=== PATIENT | male | born 1960 | race African-American/Black ===

== ENCOUNTER → 2017-12-09 | Outpatient (CLI) | payer OTHER, MEDICAID ==
[~2017-12-09] MED LIST: METF500T PO
[2017-12-09 11:01] LABS: BILIRUBIN, URINE NEG (NEG); BLOOD, URINE NEG (NEG); GLUCOSE,URINE TRACE mg/dL (NEG); KETONE, URINE NEG (NEG); MUCUS URINE FEW /lpf (OCC); NITRITE,URINE NEG (NEG); SQUAMOUS EPITHELIAL CELL URINE <1 /hpf (0-5); URINE COLOR YELLOW (YELLW/STRAW); URINE LEUKOCYTE ESTERASE NEG (NEG)
[2017-12-09 11:12] LABS: AUTOMATED NEUTROPHIL # 3.3 TH/MM3 (1.8-7.7); BASOPHIL % 0.7 % (0.0-2.0); EOSINOPHIL # 0.2 TH/MM3 (0-0.4); EOSINOPHIL % 2.9 % (0.0-4.0); HEMATOCRIT 39.2 % (39.0-51.0); HEMOGLOBIN 13.4 GM/DL (13.0-17.0); LYMPH % 37.1 % (9.0-44.0); LYMPHOCYTE # 2.3 TH/MM3 (1.0-4.8); MEAN CORPUSCULAR HEMOGLOBIN 27.3 PG (27.0-34.0); MEAN CORPUSCULAR HGB CONC 34.1 % (32.0-36.0); MEAN PLATELET VOLUME 8.9 FL (7.0-11.0); MONO % 6.6 % (0.0-8.0); MONOCYTE # 0.4 TH/MM3 (0-0.9); NEUT % 52.7 % (16.0-70.0); PLATELET COUNT 185 TH/MM3 (150-450); RED CELL DISTRIBUTION WIDTH 13.5 % (11.6-17.2); WHITE BLOOD COUNT 6.2 TH/MM3 (4.0-11.0)
[2017-12-09 11:19] LABS: PROTHROMBIN TIME - PATIENT 10.3 SEC (9.8-11.6)
--- NOTE | 2017-12-09 11:27 | RADRPT ---
EXAM DATE/TIME: 12/09/2017 10:39 [facility] COMPARISON: No previous studies available for comparison. INDICATIONS : Evaluate for pneumonia, pneumothorax, or communicable disesase. Pre-op colectomy. MEDICAL HISTORY : Diabetes mellitus type II. Carcinoma, colon. SURGICAL HISTORY : Infusaport. ENCOUNTER: Initial ACUITY: 1 day PAIN SCORE: 0/10 LOCATION: Bilateral chest FINDINGS: The Vjeeud-c-Ggib in excellent position. The lungs are clear. The visualized bony structures are thanh sly intact. CONCLUSION: 1. No acute cardiopulmonary findings. Steven Young MD on December 09, 2017 at 11:25 Board Certified Radiologist. This report was verified electronically.
[2017-12-09 11:40] LABS: ALBUMIN 3.6 GM/DL (3.4-5.0); AST (GOT) 16 U/L (15-37); BICARBONATE 28.3 MEQ/L (21.0-32.0); BLOOD UREA NITROGEN 6 MG/DL (7-18); CALCIUM 9.2 MG/DL (8.5-10.1); CHLORIDE 104 MEQ/L (98-107); CREATININE 0.58 MG/DL (0.60-1.30); GLOMERULAR FILTRATION RATE 175 ML/MIN (>89); GLUCOSE,FASTING 163 MG/DL (74-99); SODIUM (NA) 140 MEQ/L (136-145)
[2017-12-09 11:47] LABS: ALKALINE PHOSPHATASE 77 U/L (45-117); ALT (GPT) 22 U/L (12-78); TOTAL BILIRUBIN ADULT 0.7 MG/DL (0.2-1.0); TOTAL PROTEIN 7.3 GM/DL (6.4-8.2)
--- NOTE | 2017-12-09 13:50 | EKG ---
Date Performed: 12/09/2017 Time Performed: 10:13:10 PTAGE: 57 years EKG: Sinus rhythm LEFT ANTERIOR FASCICULAR BLOCK ABNORMAL ECG NO PREVIOUS TRACING 12/08/2017 1013 DOCTOR: Felipa Osorio Interpretating Date/Time 12/09/2017 13:49:55
== END ==
LOC: CPRE 09:45
PROVIDERS: ATTEND Colon & Rectal Surgery
DX: Z01.810 Encounter for preprocedural cardiovascular examination (principal); Z01.811 Encounter for preprocedural respiratory examination; Z01.812 Encounter for preprocedural laboratory examination; Z01.818 Encounter for other preprocedural examination; C20 Malignant neoplasm of rectum; C18.4 Malignant neoplasm of transverse colon; R94.31 Abnormal electrocardiogram [ECG] [EKG]
CPT/HCPCS: 36415; 71046; 80053; 81001; 82378; 85025; 85610; 85730; 93005

== ENCOUNTER 2017-12-16 11:31 | Inpatient (IN) | payer OTHER, MEDICAID ==
[~2017-12-16] VITALS: Ht 175.3 cm; Wt 83.8 kg
[2017-12-16] MEDS ORDERED: ePHEDrine/NS 25 MG/5 ML SYRINGE IV ONE (12:00)
[2017-12-16] MEDS ORDERED: ONDANSETRON HCL 4 MG/2 ML VIAL IV ONE (12:00)
[2017-12-16] MEDS ORDERED: LABETALOL HCL 100 MG/20 ML VIAL IV ONE (12:00)
[2017-12-16] MEDS ORDERED: STERILE WATER FOR INJECTION 20 ML VIAL IV ONE (12:00)
[2017-12-16] MEDS ORDERED: LACTATED RINGER'S 1000 ML INJ 1,000 ML IV ONE (12:00)
[2017-12-16] MEDS ORDERED: PHENYLEPHRINE HCL 10 MG/ML VIAL IV ONE (12:00)
[2017-12-16] MEDS ORDERED: VECURONIUM BROMIDE 20 MG VIAL IV ONE (12:00)
[2017-12-16] MEDS ORDERED: SODIUM CHLORID 0.9% 500 ML INJ 500 ML IV ONE (12:00)
[2017-12-16] MEDS ORDERED: LIDOCAINE HCL 1% PF 5 ML SYRINGE OTHER ONE (12:00)
[2017-12-16] MEDS ORDERED: PROPOFOL 200 MG/20 ML AMP IV ONE (12:00)
[2017-12-16] MEDS ORDERED: DEXAMETHASONE SOD PHOS 4 MG/ML VIAL IV ONE (12:00)
[2017-12-16] MEDS ORDERED: ceFAZolin INJ 1,000 MG VIAL IV ONE (12:00)
[2017-12-16] MEDS ORDERED: PHENYLEPH/NS 1000 MCG/10 ML SYR IV ONE (12:00)
[2017-12-16] MEDS ORDERED: ROCURONIUM INJ 50 MG/5 ML SYRINGE IV PUSH ONE (12:00)
[2017-12-16] MEDS ORDERED: DEXT 5%-NACL 0.9% 1000 ML INJ 1,000 ML IV SCH (14:00)
[2017-12-16] MEDS ORDERED: METOPROLOL TARTRATE 25 MG TAB PO PRN (14:00)
[2017-12-16] MEDS ORDERED: CHLORHEXIDINE GLUCONATE 2 % 1 PACK (2 CLOTHS) TOPICAL PRN (14:00)
[2017-12-16] MEDS ORDERED: INSULIN HUMAN REGULAR 1,000 UNITS/10 ML VIAL SQ PRN (14:00)
[2017-12-16] MEDS ORDERED: SODIUM CHLORID 0.9% 500 ML IV PRN (14:00)
[2017-12-16] MEDS ORDERED: POVIDONE IODINE 5% (ANTISEPSIS KIT) 4 APPLICATIONS EACH NARE PRN (14:00)
[2017-12-16] MEDS ORDERED: LACTATED RINGER'S 1000 ML IV PRN (14:00)
[2017-12-16] MEDS: METRONIDAZOLE 500 MG/100 ML ISONTONIC SOLN IV SCH ×2 (14:33→18:59)
[2017-12-16] MEDS: ceFAZolin 2 GM PREMIX 50 ML IV SCH ×2 (14:33→18:58)
--- NOTE | 2017-12-16 14:38 | PD.OP ---
Operative Report Date of Surgery: Dec 16, 2017 Preoperative Diagnosis: Colon and rectal cancer Postoperative Diagnosis: Same Procedure: Cystoscopy with bilateral ureteral catheter insertion Anesthesia: JOSE Surgeon: Srinivasa Sandoval Skate Hop(s): None Resident Surgeon: None Operation and Findings: 57-year-old male who presents with history of colon and rectal cancer who elected to undergo robotic resection by Dr. Nelson. Request for made for bilateral ureteral catheter insertion. Patient was brought to the operating replacement dorsal lithotomy position. He received general endotracheal tube anesthesia. He received preprocedure antibiotics he was prepped and draped in usual sterile fashion. A 22 Mosotho cystoscopy was inserted in the bladder. Coapting prostatic lobes were identified. The left ureteral orifice was identified and a 5 Mosotho catheter was inserted in the left ureteral orifice without difficulty. This was again repeated on the right side without difficulty. A 16 Mosotho Brantley was then inserted and the catheters were attached to the Brantley. He tolerated procedure well. Srinivasa Sandoval DO Dec 16, 2017 14:38
[2017-12-16] MEDS ORDERED: MIDAZOLAM HCL 2 MG/2 ML VIAL ONE (18:44)
[2017-12-16] MEDS ORDERED: SUGAMMADEX SODIUM 200 MG/2 ML VIAL IV PUSH ONE (22:09)
[2017-12-16] MEDS ORDERED: ACETAMINOPHEN 1000 MG/100 ML 100 ML IV ONE (22:09)
[2017-12-16] MEDS ORDERED: VECURONIUM BROMIDE 20 MG VIAL ONE (22:09)
[2017-12-16] MEDS ORDERED: ceFAZolin INJ 1,000 MG VIAL ONE (22:10)
[2017-12-16] MEDS: D5-NS + KCL 20 MEQ INJ 1,000 ML IV SCH (23:09)
[2017-12-16] MEDS ORDERED: Post-op Orders (for Pharmacy) XX ONE (23:15)
[2017-12-16] MEDS ORDERED: ACETAMINOPHEN/HYDROcodone 325 MG/5 MG TAB PO PRN (23:15)
[2017-12-16] MEDS: KETOROLAC TROMETHAMINE 30 MG/ML (IVP) VIAL IVP SCH (23:15)
[2017-12-16] MEDS ORDERED: diphenhydrAMINE HCL 50 MG/ML VIAL IV PUSH PRN (23:15)
[2017-12-16] MEDS ORDERED: ENALAPRILAT 2.5 MG/2 ML VIAL IV PUSH PRN (23:15)
[2017-12-16] MEDS ORDERED: POTASSIUM CHLOR 20 MEQ PREMIX 100 ML IV PRN (23:15)
[2017-12-16] MEDS ORDERED: BENZOCAINE 6 MG/MENTHOL 10 MG LOZENGE BUCCAL PRN (23:15)
[2017-12-16] MEDS ORDERED: ACETAMINOPHEN 325 MG TAB PO PRN (23:15)
[2017-12-16] MEDS ORDERED: ENALAPRILAT 1.25 MG/ML VIAL IV PUSH PRN (23:15)
[2017-12-16] MEDS ORDERED: NALOXONE HCL 0.4 MG/ML AMP IV PUSH PRN (23:15)
[2017-12-16] MEDS ORDERED: POTASSIUM CHLOR 40 MEQ PREMIX 100 ML IV PRN (23:15)
[2017-12-16] MEDS: PCA - TOTAL MG MORPHINE DELIVERED PER SHIFT SCH (23:15)
[2017-12-16] MEDS ORDERED: ONDANSETRON HCL 4 MG/2 ML VIAL IV PUSH PRN (23:15)
[2017-12-16] MEDS ORDERED: DO NOT ADM ANY ANTICOAGULANT DRUGS PRN (23:15)
[2017-12-16] MEDS ORDERED: MORPHINE SULFATE 4 MG/ML INJ ONE (23:35)
[2017-12-16] MEDS ORDERED: INSULIN HUMAN REGULAR 1,000 UNITS/10 ML VIAL SQ SCH (23:46)
[2017-12-16 23:51] LABS: AUTOMATED NEUTROPHIL # 12.9 TH/MM3 (1.8-7.7); BASOPHIL # 0.1 TH/MM3 (0-0.2); BASOPHIL % 0.5 % (0.0-2.0); HEMATOCRIT 39.7 % (39.0-51.0); HEMOGLOBIN 13.2 GM/DL (13.0-17.0); LYMPH % 7.1 % (9.0-44.0); LYMPHOCYTE # 1.1 TH/MM3 (1.0-4.8); MEAN CELL VOLUME 80.7 FL (80.0-100.0); MEAN CORPUSCULAR HEMOGLOBIN 26.8 PG (27.0-34.0); MEAN CORPUSCULAR HGB CONC 33.2 % (32.0-36.0); MEAN PLATELET VOLUME 8.3 FL (7.0-11.0); MONO % 7.3 % (0.0-8.0); MONOCYTE # 1.1 TH/MM3 (0-0.9); NEUT % 85.1 % (16.0-70.0); PLATELET COUNT 209 TH/MM3 (150-450); RED BLOOD COUNT 4.92 MIL/MM3 (4.50-5.90); RED CELL DISTRIBUTION WIDTH 14.3 % (11.6-17.2); WHITE BLOOD COUNT 15.1 TH/MM3 (4.0-11.0)
[2017-12-17] VITALS (21 sets, daily range): BP systolic 134–163; BP diastolic 69–90; PULSE 70–108; RESP 16–21; TEMP 96.3–98.5; O2SAT 95–98
[2017-12-17] MEDS: MORPHINE SULFATE 30 MG/30 ML PCA IV SCH ×2 (00:11→21:38)
[2017-12-17 00:20] LABS: BICARBONATE 20.4 MEQ/L (21.0-32.0); CALCIUM 8.7 MG/DL (8.5-10.1); CREATININE 1.18 MG/DL (0.60-1.30)
[2017-12-17] MEDS ORDERED: *morphine SULFATE 4 MG/ML PERIprocedure ONLY ONE (01:32)
--- NOTE | 2017-12-17 02:41 | MP ---
cc: Nan Nelson MD, Thomas Bigman, Dr. DATE OF OPERATION: 12/16/2017 PREOPERATIVE DIAGNOSES: 1. Transverse colon cancer. 2. Rectal cancer. POSTOPERATIVE DIAGNOSES: 1. Transverse colon cancer. 2. Rectal cancer. PROCEDURES: 1. Robotic extended descending colectomy. 2. Robotic low anterior resection. 3. Robotic diverting ileostomy. 4. Robotic takedown of splenic flexure. SURGEON: Nan Nelson MD OIL AND GAS SPECIALIST: Rakesh. ANESTHESIA: General per ET tube. ESTIMATED BLOOD LOSS: 150 mL. OPERATIVE INDICATIONS: The patient is a 57-year-old male who was recently noted to have cancer in both the distal transverse colon as well as the distal rectum. OPERATIVE COURSE: The patient was brought to the operating room, placed in supine position. After induction of general anesthesia, the patient was placed in Shon stirrups and all bony prominences were carefully padded. Dr. Sandoval and performed cystoscopy and placement of bilateral ureteral catheters. Please see his operative note for details. The site was then chosen for the camera being located just underneath the umbilicus. A 10/12 trocar was placed at this location under direct vision using the laparoscope. CO2 inflation was undertaken and a brief abdominal survey was performed with nothing that would preclude the robotic approach. The remainder of the ports were planned as followed: A 10/12 port was placed just inside the right anterior superior iliac spine and a #5 port was placed just above the umbilical line midway between the right lower quadrant port and the camera port. Two 8 da Andrade long ports were placed, 1 in the left anterior axillary line in line with the umbilicus and 1 just above the umbilical line in the left midclavicular line. The patient was hydroplaned with head slightly up and the omentum was brought up and over the transverse colon. He had quite a bit of omentum and it was very wrapped around the distal transverse colon so it was difficult to be sure until we finished some dissection that we did indeed have the correct area but in light of both his CAT scan and his colonoscopy and in agreement, I felt that it was fairly safe. So we proceeded with dissection. At the mid point of the transverse colon, the omentum was grasped and pulled away from the transverse colon. Dissection was continued until we were able to enter the lesser sac, however, the lesser sac was somewhat obscured. So this was somewhat difficult. The proximal descending colon was retracted medially and the lateral peritoneal attachments were dissected free there. Eventually the combination of the lesser sac and working our way around, I was able eventually to free the splenic flexure, although it was quite adherent. I did take the distal 1/3rd of the omentum with the specimen. The omentum was divided using the vessel sealer. Eventually we did have mobility of the descending colon from middle colic vessel over to the splenic flexure and round the splenic flexure and down the proximal half of the descending colon. At this point as length was going to be somewhat of a concern, I elected to proceed with the pelvic portion of the procedure. The robot was redocked over the left hip and the sigmoid colon was retracted down to the left. A window was made in the peritoneum and dissection was continued posterior to the vessels until the left ureter was clearly identified and swept away from the specimen. Eventually we had mobility and dissection continued up the posterior peritoneum freeing the descending colon mesentery from the posterior peritoneum and kidney and meeting our previous dissection. Dissection then continued down posterior to the rectum down to the level of the pelvic floor as the tumor was quite distal. The dissection then continued laterally around the right and left side ____ ourselves, the end going anteriorly down to the level of the pelvic floor as well past the peritoneal reflection. Eventually we had full mobility of the sigmoid and rectum down level of pelvic floor and after digital confirmation of the distal tumor, the mesentery was divided using the harmonic scalpel. An attempt was made to staple across this using the robotic stapler, but we could not get a good angle to get down and so I elected to proceed with a contour stapler. At this point we had full mobility of the distal transverse colon, descending colon, sigmoid colon and rectum down to the pelvic floor and I elected to proceed with the open portion of the procedure. The robot was undocked. A 12-15 cm midline incision was made beginning just below the umbilicus and proceeding to jail between the umbilicus and the symphysis pubis. Using electrocautery dissection it was carried down to the fascia of the anterior abdominal wall which was split. Before that the suprahemorrhoidal vessels were dissected free using ____, doubly clamped proximally, singly clamped distally and divided and ligated. At this point the contour stapler was brought onto the field and with quite a bit of difficulty, was eventually able to be closed across the distal colon just below the level of the tumor. This was confirmed digitally. The stapler was then fired and removed. At this point the remainder of the bowel was brought out and initially I had thought I could do a wedge resection of the distal transverse colon tumor with maintaining the descending colon and proximal sigmoid, bringing it down to the distal rectum and so with that in mind, the area of the mesentery just to the left of the middle colic vessels was dissected free using electrocautery and a SPENCER stapler was placed across the transverse colon at this level. The vessels to the splenic flexure were the dissected free, serially divided and ligated with 0 Vicryl ties and a site was chosen for division of the descending colon mid way along its length. This was also divided using the SPENCER stapler. The antimesenteric ____ staple line were then removed. One limb of the gastrointestinal stapler was then placed on each limb of the bowel. This was closed along the antimesenteric border, fired and removed thus creating enteroenterotomy. The resulting enterotomy was closed transversely with the TX-60 stapling device. The anastomosis appeared pink and healthy circumferentially. However, after further evaluation of the area, the bowel actually appeared viable both at the anastomosis and distally, however, upon evaluating there was a very small vessel that would be feeding both anastomoses and the intervening segment of bowel and was not a very robust vessel and I just felt after consideration, that this would not be in the patient's best interest, so I did elect to proceed with an extended left colectomy. That vessel was then divided and ligated with 0 Vicryl ties and the ascending colon and hepatic flexure were then dissected free using electrocautery, freeing up the ascending colon and proximal transverse colon. Eventually this was then brought down but of course due to the length of the middle colic vessel, was not able to reach quite distal anastomosis. The middle colic vessel was then divided and ligated with 0 Vicryl ties and the viability of the bowel was assessed and it appeared pink and healthy and had good bleeding at the edges. With this it did come down nicely to the rectal stump. Pursestring stapler was placed across the bowel at this level and the distal bowel was amputated and sent for pathology. The anvil from the 29 EEA stapler was placed into the cut end of the bowel and the previously placed pursestring suture was then secured. This was then reduced back into the peritoneal cavity. The fascia at the incision was closed in running fashion using #1 PDS. The wound was copiously irrigated with warm normal saline and the skin was closed in running subcuticular fashion using 3-0 Vicryl. CO2 insufflation was then resumed. The 29 EEA stapler was then advanced through the anus and up to the rectal stump without difficulty. The spike was then advanced just posterior to the staple line. The anvil was mated to the spike being careful that the bowel was not twisted. The stapler was closed, held for 30 seconds, fired and removed, thus creating an enteroenterotomy. The enterotomy appeared pink and healthy circumferentially but we did not have good visualization due to its extremely distal nature. It did however, lie without tension and in a nice orientation. The site was then chosen for diverting ileostomy being located approximately 15 cm proximal to the ileocecal valve. Clips were applied 2 proximally and 1 distally to allow appropriate orientation. The 10/12 trocar site in the right lower quadrant was closed using the crossbow device and #1 PDS. This was placed but not secured until the CO2 inflation was removed. All dissection beds were examined with no sign of any significant bleeding. Some Surgicel powder was dusted into the pelvis however no air was deflated to the extent possible. The ileostomy site was chosen for the right #5 port site. A 1.5 cm lower brule of skin was excised sharply and the preperitoneal fat was removed down to the fascia. The fascia was incised 1.5 cm and gently dilated to allow the bowel to come out. The ileostomy was brought out and the distal end was stapled with the TX-60 stapling device and the stoma was matured in a typical Yeimi fashion. The fascial suture was then secured. The trocar sites were then copiously irrigated with warm normal saline and closed in interrupted subcuticular fashion using 3-0 Vicryl. The right ureteral stent was removed. All sponge, needle and instrument counts were correct and the patient was returned to the post anesthesia care unit in stable condition. Nan Nelson MD KW/rt , 11:25 PM , 02:39 AM
[2017-12-17] MEDS: KETOROLAC TROMETHAMINE 30 MG/ML (IVP) VIAL IVP SCH ×4 (05:35→17:11)
[2017-12-17] MEDS: PCA - TOTAL MG MORPHINE DELIVERED PER SHIFT SCH ×3 (05:51→20:51)
[2017-12-17 07:14] LABS: AUTOMATED NEUTROPHIL # 9.8 TH/MM3 (1.8-7.7); BASOPHIL % 0.1 % (0.0-2.0); HEMATOCRIT 39.7 % (39.0-51.0); HEMOGLOBIN 13.1 GM/DL (13.0-17.0); LYMPH % 7.7 % (9.0-44.0); LYMPHOCYTE # 0.9 TH/MM3 (1.0-4.8); MEAN CELL VOLUME 82.2 FL (80.0-100.0); MEAN CORPUSCULAR HGB CONC 32.8 % (32.0-36.0); MEAN PLATELET VOLUME 8.6 FL (7.0-11.0); MONO % 6.6 % (0.0-8.0); MONOCYTE # 0.8 TH/MM3 (0-0.9); NEUT % 85.6 % (16.0-70.0); PLATELET COUNT 189 TH/MM3 (150-450); RED BLOOD COUNT 4.83 MIL/MM3 (4.50-5.90); RED CELL DISTRIBUTION WIDTH 14.1 % (11.6-17.2); WHITE BLOOD COUNT 11.4 TH/MM3 (4.0-11.0)
[2017-12-17 07:39] LABS: CALCIUM 8.8 MG/DL (8.5-10.1); CREATININE 1.22 MG/DL (0.60-1.30)
[2017-12-17] MEDS: metroNIDAZOLE 500 MG INJ 100 ML IV SCH ×3 (09:44→16:51)
[2017-12-17] MEDS: D5-NS + KCL 20 MEQ INJ 1,000 ML IV SCH ×2 (09:44→14:22)
[2017-12-17] MEDS ORDERED: GLUCAGON 1 MG/ML VIAL OTHER PRN (09:45)
[2017-12-17] MEDS ORDERED: DEXTROSE 50% IN WATER 50 ML VIAL(D50) IV PUSH PRN (09:45)
[2017-12-17] MEDS: PANTOPRAZOLE SODIUM 40 MG VIAL IVP SCH (09:45)
[2017-12-17] MEDS: HIGH DOSE INSULIN NOVOLIN REGULAR SUPPLEMENTAL SCALE SQ SCH ×4 (10:04→20:47)
[2017-12-17] MEDS: HEPARIN SODIUM - SQ 10,000 UNITS/ML VIAL SQ SCH (20:49)
[2017-12-18] VITALS: BP 155/83; PULSE 89; RESP 21; TEMP 96.7; O2SAT 93
[2017-12-18] MEDS: D5-NS + KCL 20 MEQ INJ 1,000 ML IV SCH ×4 (01:27→19:46)
[2017-12-18 04:00] VITALS: BP 134/81; PULSE 91; RESP 21; TEMP 97.2; O2SAT 92
[2017-12-18] MEDS: PCA - TOTAL MG MORPHINE DELIVERED PER SHIFT SCH ×3 (06:15→19:53)
[2017-12-18] MEDS: KETOROLAC TROMETHAMINE 30 MG/ML (IVP) VIAL IVP SCH ×4 (06:15→23:24)
[2017-12-18 07:03] LABS: AUTOMATED NEUTROPHIL # 8.8 TH/MM3 (1.8-7.7); BASOPHIL # 0.1 TH/MM3 (0-0.2); BASOPHIL % 0.8 % (0.0-2.0); EOSINOPHIL # 0.1 TH/MM3 (0-0.4); EOSINOPHIL % 0.6 % (0.0-4.0); HEMATOCRIT 32.3 % (39.0-51.0); HEMOGLOBIN 10.9 GM/DL (13.0-17.0); LYMPH % 15.6 % (9.0-44.0); LYMPHOCYTE # 1.8 TH/MM3 (1.0-4.8); MEAN CELL VOLUME 80.5 FL (80.0-100.0); MEAN CORPUSCULAR HEMOGLOBIN 27.1 PG (27.0-34.0); MEAN CORPUSCULAR HGB CONC 33.6 % (32.0-36.0); MEAN PLATELET VOLUME 8.6 FL (7.0-11.0); MONO % 5.3 % (0.0-8.0); MONOCYTE # 0.6 TH/MM3 (0-0.9); NEUT % 77.7 % (16.0-70.0); PLATELET COUNT 151 TH/MM3 (150-450); RED BLOOD COUNT 4.01 MIL/MM3 (4.50-5.90); RED CELL DISTRIBUTION WIDTH 14.1 % (11.6-17.2); WHITE BLOOD COUNT 11.3 TH/MM3 (4.0-11.0)
[2017-12-18 08:00] VITALS: BP 157/83; PULSE 93; RESP 18; TEMP 95.9; O2SAT 93
[2017-12-18 08:05] LABS: BICARBONATE 28.6 MEQ/L (21.0-32.0); CALCIUM 8.2 MG/DL (8.5-10.1); CREATININE 0.64 MG/DL (0.60-1.30)
[2017-12-18] MEDS: HEPARIN SODIUM - SQ 10,000 UNITS/ML VIAL SQ SCH ×2 (09:35→19:48)
[2017-12-18] MEDS: HIGH DOSE INSULIN NOVOLIN REGULAR SUPPLEMENTAL SCALE SQ SCH ×4 (09:36→19:47)
[2017-12-18] MEDS: PANTOPRAZOLE SODIUM 40 MG VIAL IVP SCH (09:36)
[2017-12-18 12:00] VITALS: BP 151/86; PULSE 98; RESP 16; TEMP 97.9; O2SAT 98
[2017-12-18 16:00] VITALS: BP 138/71; PULSE 102; RESP 18; TEMP 97.6; O2SAT 96
[2017-12-18 20:00] VITALS: BP 164/94; PULSE 91; RESP 21; TEMP 98.6; O2SAT 97
[2017-12-18] MEDS: MORPHINE SULFATE 30 MG/30 ML PCA IV SCH (23:27)
[2017-12-19] VITALS (7 sets, daily range): BP systolic 132–166; BP diastolic 80–92; PULSE 74–92; RESP 16–20; TEMP 97.2–98.5; O2SAT 90–98
[2017-12-19 04:22] LABS: BASOPHIL # 0.1 TH/MM3 (0-0.2); BASOPHIL % 0.7 % (0.0-2.0); EOSINOPHIL # 0.3 TH/MM3 (0-0.4); EOSINOPHIL % 2.7 % (0.0-4.0); HEMOGLOBIN 10.1 GM/DL (13.0-17.0); LYMPH % 21.4 % (9.0-44.0); LYMPHOCYTE # 2.2 TH/MM3 (1.0-4.8); MEAN CELL VOLUME 79.8 FL (80.0-100.0); MEAN CORPUSCULAR HEMOGLOBIN 27.9 PG (27.0-34.0); MEAN CORPUSCULAR HGB CONC 34.9 % (32.0-36.0); MEAN PLATELET VOLUME 8.6 FL (7.0-11.0); MONO % 5.8 % (0.0-8.0); MONOCYTE # 0.6 TH/MM3 (0-0.9); NEUT % 69.4 % (16.0-70.0); PLATELET COUNT 153 TH/MM3 (150-450); RED BLOOD COUNT 3.63 MIL/MM3 (4.50-5.90); RED CELL DISTRIBUTION WIDTH 13.8 % (11.6-17.2); WHITE BLOOD COUNT 10.1 TH/MM3 (4.0-11.0)
[2017-12-19 04:49] LABS: BICARBONATE 28.8 MEQ/L (21.0-32.0); CALCIUM 8.1 MG/DL (8.5-10.1); CREATININE 0.55 MG/DL (0.60-1.30)
[2017-12-19] MEDS: KETOROLAC TROMETHAMINE 30 MG/ML (IVP) VIAL IVP SCH ×3 (05:42→17:08)
[2017-12-19] MEDS: PCA - TOTAL MG MORPHINE DELIVERED PER SHIFT SCH (05:43)
[2017-12-19] MEDS: HEPARIN SODIUM - SQ 10,000 UNITS/ML VIAL SQ SCH ×2 (08:41→20:40)
[2017-12-19] MEDS: HIGH DOSE INSULIN NOVOLIN REGULAR SUPPLEMENTAL SCALE SQ SCH ×4 (08:42→20:44)
[2017-12-19] MEDS: PANTOPRAZOLE SODIUM 40 MG VIAL IVP SCH (08:42)
[2017-12-19] MEDS: ACETAMINOPHEN/HYDROcodone 325 MG/5 MG TAB PO PRN ×2 (09:49→20:39)
[2017-12-19] MEDS: D5-NS + KCL 20 MEQ INJ 1,000 ML IV SCH (12:53)
--- NOTE | 2017-12-19 13:06 | PD.WCN.NOT ---
Wound Consult Description: Consult for NEW OSTOMY TEACHING of rlq ileostomy per Dr Nelson Communicated with: Patient Patient family member at bedside Recommendation: Empty pouch of effluent when 1/3-1/2 full. Change entire pouching system every 3-5 days and PRN for suspected or confirmed leaks. Measure stoma with each wafer change. Assess stoma color and output. When to contact physician for lack of output and/or color changes in stoma appearance. How to obtain supplies once discharged. Peristomal skin care using water and thoroughly drying prior to new wafer application. Diet and foods that help thicken stool, create more gas and odor Additional Information: Patient seen on [address] [place] [address] for ostomy assessment and teaching. Ostomy Type: Ileostomy Surgeon: Nan Nelson MD Date of Surgery: Dec 16, 2017 Complete: Starter kit (sent out), Education materials (let at bedside and contents reviewed), Rx (left on chart), Other (pouch changed after being soiled when significant other tried to empty and clean it out) Educated patient on: Empty pouch of effluent when 1/3-1/2 full. Change entire pouching system every 3-5 days and PRN for suspected or confirmed leaks. Measure stoma with each wafer change. Assess stoma color and output. When to contact physician for lack of output and/or color changes in stoma appearance. How to obtain supplies once discharged. Peristomal skin care using water and thoroughly drying prior to new wafer application. Diet and foods that help thicken stool, create more gas and odor Additional information Patient seen on [address] [place] [address] for ostomy assessment and teaching. Patient was lying comfortably in bed with pouch more than 1/2 full of effluent. Patient states that he has been watching the nurses empty his pouch and when explained that it was too full he stated that he could call them in to empty it. It was explained to the patient that who ever would be taking care of this at home should be emptying it now. There fore his significant other at bedside got up and grabbed gloves for the patient. To the patient surprise his significant other stated that sports book writer was here to help him and that he should be emptying it and she would help him. Patient removed the pouch and gave it to the significant other to empty and rinse out as requested. Unfortunately the pouch became soiled in the process and the pouch had to be thrown away after teaching was completed on how to properly empty the pouch. A new pouch was obtained and after cleansing inside of wafer with toilet paper, the patient placed the new pouch and closed the end. Stoma measured 1 1/4-1 1/2" and requires a pouching system in size 2 1/ 4". Stoma is red, moist, round, moderately protruding, functioning with effluent coming from lumen noted in center of stoma. Patient was educated on the above ^ topics with reinforcement. Patient to be seen again on 12/20 for further teaching, to answer any questions, and assessment of stoma. Michelle Moreau SOHAM Dec 19, 2017 13:06
--- NOTE | 2017-12-19 13:09 | HHI.FF ---
Face to Face Verification Diagnosis: (1) Rectal cancer (2) Cancer of transverse colon Home Health Nursing Order: Wound care and dressing changes I have seen patient Rian Curran on 12/19/17. My clinical findings support the need for the requested home health care services because: Deconditioned w/ increased weakness Limited ability to care for self I certify that my clinical findings support that this patient is homebound because: Post-op weakness (new stoma) Nan Nelson MD Dec 19, 2017 13:09
--- NOTE | 2017-12-19 13:11 | HHI.PR ---
Subjective Remarks POD#3 robotic extended left colectomy, robotic LAR comfortable Objective Vital Signs Date Time Temp Pulse Resp B/P (MAP) Pulse Ox O2 Delivery O2 Flow Rate FiO2 12/19/17 12:00 97.6 86 16 158/92 (114) 98 12/19/17 08:40 18 12/19/17 08:00 97.7 77 16 158/82 (107) 95 12/19/17 05:43 17 12/19/17 04:00 97.2 81 20 148/90 (109) 95 12/19/17 00:00 98.2 92 20 148/81 (103) 98 12/18/17 23:27 19 12/18/17 20:00 98.6 91 21 164/94 (117) 97 12/18/17 19:53 19 12/18/17 16:00 97.6 102 18 138/71 (93) 96 12/18/17 14:00 16 I/O 12/18/17 12/18/17 12/18/17 12/19/17 12/19/17 12/19/17 07:00 15:00 23:00 07:00 15:00 23:00 Intake Total 750 ml 1000 ml 2933 ml 480 ml Output Total 350 ml 2000 ml 1050 ml 1150 ml Balance 400 ml 1000 ml 933 ml -570 ml -1150 ml Intake Oral 750 ml 2100 ml 480 ml IV Total 1000 ml 833 ml Output Urine Total 350 ml 1800 ml 1050 ml 900 ml Stool Total 200 ml 250 ml # Voids 0 Result Diagram: 12/19/17 0400 12/19/17 0400 Objective Remarks Abdomen soft, nondistended, tender wounds clean stoma pink Assessment and Plan Assessment and Plan Home tomorrow with [facility] Nan Nelson MD Dec 19, 2017 13:11
[2017-12-20] VITALS: BP 169/90; PULSE 74; RESP 17; TEMP 95.3; O2SAT 98
[2017-12-20] MEDS: ACETAMINOPHEN/HYDROcodone 325 MG/5 MG TAB PO PRN ×2 (04:37→11:36)
[2017-12-20 08:00] VITALS: BP 164/96; PULSE 68; RESP 20; TEMP 96.9; O2SAT 99
[2017-12-20] MEDS: HIGH DOSE INSULIN NOVOLIN REGULAR SUPPLEMENTAL SCALE SQ SCH (09:20)
[2017-12-20] MEDS: PANTOPRAZOLE SODIUM 40 MG VIAL IVP SCH (09:20)
[2017-12-20] MEDS: HEPARIN SODIUM - SQ 10,000 UNITS/ML VIAL SQ SCH (09:21)
--- NOTE | 2017-12-20 09:43 | HHI.PR ---
Subjective Remarks POD#4 robotic extended left colectomy, robotic LAR comfortable Objective Vital Signs Date Time Temp Pulse Resp B/P (MAP) Pulse Ox O2 Delivery O2 Flow Rate FiO2 12/20/17 08:00 96.9 68 20 164/96 (118) 99 12/20/17 00:00 95.3 74 17 169/90 (116) 98 12/19/17 20:00 98.1 74 17 166/85 (112) 98 12/19/17 16:00 97.4 82 16 139/80 (99) 97 12/19/17 12:00 97.6 86 16 158/92 (114) 98 I/O 12/19/17 12/19/17 12/19/17 12/20/17 12/20/17 12/20/17 07:00 15:00 23:00 07:00 15:00 23:00 Intake Total 480 ml 720 ml 240 ml Output Total 1050 ml 1150 ml 1500 ml Balance -570 ml -1150 ml 720 ml -1260 ml Intake Oral 480 ml 720 ml 240 ml Output Urine Total 1050 ml 900 ml 1500 ml Stool Total 250 ml # Voids 0 4 # Bowel Movements 1 Result Diagram: 12/19/17 0400 12/19/17 0400 Objective Remarks Abdomen soft, nondistended, tender wounds clean stoma pink Assessment and Plan Assessment and Plan Doing well Home today Followup 3 weeks Nan Nelson MD Dec 20, 2017 09:43
[2017-12-20] MEDS ORDERED: HYDR-3516 PO (09:46)
--- NOTE | 2017-12-21 08:01 | MD ---
cc: Nan Nelson MD DATE OF DISCHARGE: 12/20/2017 ADMISSION DIAGNOSIS: Transverse colon, concern to rectal cancer. DISCHARGE DIAGNOSIS: Transverse colon, concern to rectal cancer. PROCEDURES: 1. Cystoscopy, was placed on bilateral ureteral catheters. 2. Robotic extended descending colectomy. 3. Robotic low anterior resection. 4. Robotic diverting ileostomy. 5. Robotic takedown of the splenic flexure. HOSPITAL COURSE: The patient is a pleasant 57-year-old male who was recently noted to have cancer of both the distal transverse colon and the distal rectum. He was admitted to the hospital on 12/16/2017, after an outpatient bowel prep. He was taken to the operating room, where he underwent the above named procedures. Postoperatively, the patient did well, with rapid return of bowel and bladder function. DISPOSITION AND RECOMMENDATIONS: He was discharged to home on the 12/20/2017, with instructions to follow with myself in the office in 3 weeks. Final pathology is not available at the time of discharge. MD JAKOB Bruce/RAJEEV , 09:45 AM , 09:20 PM
== END 2017-12-20 11:37 | disposition home or self-care (01) | DRG 330 ==
LOC: HSDI 11:31 → EDUNIT# 13:30 → HCIS 12-17 01:52 → N07A 12-17 15:47
PROVIDERS: ADMIT Colon & Rectal Surgery; ATTEND Colon & Rectal Surgery
PROC: 0DNU4ZZ Release Omentum, Percutaneous Endoscopic Approach (ICD-10-PCS; 2017-12-16)
PROC: 0DBL0ZZ Excision of Transverse Colon, Open Approach (ICD-10-PCS; 2017-12-16)
PROC: 0DBP0ZZ Excision of Rectum, Open Approach (ICD-10-PCS; 2017-12-16)
PROC: 0DBN0ZZ Excision of Sigmoid Colon, Open Approach (ICD-10-PCS; 2017-12-16)
PROC: 0DBP0ZZ Excision of Rectum, Open Approach (ICD-10-PCS; 2017-12-16)
PROC: 07BC0ZX Excision of Pelvis Lymphatic, Open Approach, Diagnostic (ICD-10-PCS; 2017-12-16)
PROC: 0D1B0Z4 Bypass Ileum to Cutaneous, Open Approach (ICD-10-PCS; 2017-12-16)
PROC: 0DBU0ZZ Excision of Omentum, Open Approach (ICD-10-PCS; 2017-12-16)
PROC: 8E0W4CZ Robotic Assisted Procedure of Trunk Region, Percutaneous Endoscopic Approach (ICD-10-PCS; 2017-12-16)
PROC: 0T788DZ Dilation of Bilateral Ureters with Intraluminal Device, Via Natural or Artificial Opening Endoscopic (ICD-10-PCS; 2017-12-16)
PROC: 0DBG0ZZ Excision of Left Large Intestine, Open Approach (ICD-10-PCS; principal; 2017-12-16 13:39)
PROC: 0DNG4ZZ Release Left Large Intestine, Percutaneous Endoscopic Approach (ICD-10-PCS; 2017-12-16 13:39)
DX: C18.4 Malignant neoplasm of transverse colon (principal); C19 Malignant neoplasm of rectosigmoid junction
CPT/HCPCS: 80048; 82805; 82948; 85025; 86850; 86900; 86901; 88305; 88307; 88309; 94150; C9113; J0131; J0690; J1100; J1644; J1815; J1885; J2250; J2270; J2370; J2405; J3010; J3480; J7040; J7120

== ENCOUNTER 2017-12-20 23:05 | Emergency (ER) | payer OTHER, MEDICAID ==
[~2017-12-20 23:05] MED LIST changes: +HYDR-3516 PO
[2017-12-20 23:19] VITALS: BP 128/78; PULSE 85; RESP 14; TEMP 98.8; O2SAT 99
[2017-12-20] MEDS ORDERED: SODIUM CHLOR 0.9% 1000 ML INJ 1,000 ML IV ONE (23:30)
[2017-12-20 23:38] VITALS: RESP 19; O2SAT 99
[2017-12-20 23:49] LABS: AUTOMATED NEUTROPHIL # 8.3 TH/MM3 (1.8-7.7); BASOPHIL % 0.4 % (0.0-2.0); EOSINOPHIL # 0.2 TH/MM3 (0-0.4); EOSINOPHIL % 1.9 % (0.0-4.0); HEMATOCRIT 41.8 % (39.0-51.0); HEMOGLOBIN 14.2 GM/DL (13.0-17.0); LYMPH % 15.7 % (9.0-44.0); LYMPHOCYTE # 1.7 TH/MM3 (1.0-4.8); MEAN CELL VOLUME 79.9 FL (80.0-100.0); MEAN CORPUSCULAR HEMOGLOBIN 27.2 PG (27.0-34.0); MEAN PLATELET VOLUME 8.8 FL (7.0-11.0); MONO % 6.4 % (0.0-8.0); MONOCYTE # 0.7 TH/MM3 (0-0.9); NEUT % 75.6 % (16.0-70.0); PLATELET COUNT 259 TH/MM3 (150-450); RED BLOOD COUNT 5.23 MIL/MM3 (4.50-5.90); RED CELL DISTRIBUTION WIDTH 14.1 % (11.6-17.2)
--- NOTE | 2017-12-20 23:52 | RADRPT ---
EXAM DATE/TIME: 12/20/2017 23:39 [facility] COMPARISON: CHEST PA & LAT, December 09, 2017, 10:39. INDICATIONS : Short of breath. MEDICAL HISTORY : Diabetes mellitus type II. Carcinoma, colon. SURGICAL HISTORY : Infusaport. ENCOUNTER: Initial ACUITY: 1 day PAIN SCORE: 0/10 LOCATION: Bilateral chest FINDINGS: Underinflated portable AP view of the chest demonstrates a normal-sized cardiac silhouette. Right adeola st wall [id number] remains present. There are linear opacities at both lung bases. No pleural effu marie, airspace consolidation, or pneumothorax is identified. The bones and soft tissues demonstrate n o acute finding. CONCLUSION: Underinflation with atelectasis at the lung bases. Otherwise, no acute finding is identified. [place] Munroe MD on December 20, 2017 at 23:50 Board Certified Radiologist. This report was verified electronically.
[2017-12-21 00:09] LABS: BICARBONATE 23.9 MEQ/L (21.0-32.0); BLOOD UREA NITROGEN 8 MG/DL (7-18); CALCIUM 9.2 MG/DL (8.5-10.1); CHLORIDE 102 MEQ/L (98-107); CREATININE 0.67 MG/DL (0.60-1.30); GLOMERULAR FILTRATION RATE 148 ML/MIN (>89); GLUCOSE,RANDOM 212 MG/DL (74-106); MAGNESIUM 1.8 MG/DL (1.5-2.5); SODIUM (NA) 136 MEQ/L (136-145)
[2017-12-21 00:22] LABS: TROPONIN I LESS THAN 0.02 NG/ML (0.02-0.05)
--- NOTE | 2017-12-21 00:27 | PD ---
HPI Chief Complaint: Syncope/Near-Syncope Time Seen by Provider: 23:14 Travel History International Travel<30 days: No Contact w/Intl Traveler<30days: No Traveled to known affect area: No History of Present Illness HPI The patient is a 57 year old male who presents to the [facility] emergency department with a history of reportedly being discharged from the hospital earlier today around 11 AM status post partial colectomy for colon cancer and right lower quadrant ileostomy placement. The patient had the surgery done by Dr. Nelson. The patient reports that the surgery was done on December 16. The patient is postop day #4. The patient reports that when he was discharged he was started on a new pain medication, oxycodone. The patient reports that in the hospital he was receiving hydrocodone for pain. The patient reports that he took an oxycodone at approximately 5 PM and then another one at approximately 9:30 PM. Shortly after taking the second dose he began to feel sweaty and agitated. He reports that he stood up and at which point he got lightheaded and had syncope. The syncopal episode lasted for a few seconds. He denies injuring himself as he was eased down by his . He denies having any chest pain, chest pressure, or shortness of breath. He denies eating anything prior to taking his last pain pill. He reports that he has been drinking fluids, however he has not been eating well today. He has had good output from his ostomy. He reports having abdominal pain related to the surgery that is no worse it was at baseline earlier today. He reports having nausea but no vomiting. He denies having any fevers or chills, cough or congestion. On review of systems otherwise, the patient denies having any neck pain, urinary symptoms, or other neurologic symptoms. FORMERLY [facility] Past Medical History Narrative Medical The patient's past medical history is significant for diabetes mellitus, colon cancer Heart Rhythm Problems: No Cancer: Yes (COLON) Cardiovascular Problems: No High Cholesterol: No Chest Pain: No Congestive Heart Failure: No Diabetes: Yes (TYPE 2) Patient Takes Glucophage: Yes Endocrine: Yes Gastrointestinal Disorders: Yes (COLON CA) GERD: Yes Genitourinary: No Hepatitis: No Hiatal Hernia: No Immune Disorder: No Musculoskeletal: No Neurologic: No Psychiatric: No Reproductive: No Respiratory: No Thyroid Disease: No Tetanus Vaccination: Unknown Influenza Vaccination: No Past Surgical History Narrative Surgical The patient's past surgical history is significant for a partial colectomy with ileostomy placement, [id number] placement Abdominal Surgery: Yes (LEFT INGUINAL HERNIA REPAIR) AICD: No Body Medical Devices: RIGHT CHEST PORT Cardiac Surgery: No Ear Surgery: No Endocrine Surgery: No Eye Surgery: No Genitourinary Surgery: Yes (COLECTOMY) Joint Replacement: No Oral Surgery: No Pacemaker: No Thoracic Surgery: No Other Surgery: Yes Social History Alcohol Use: No Tobacco Use: No Substance Use: No Allergies-Medications (Allergen,Severity, Reaction): Coded Allergies: No Known Allergies (Unverified , 12/16/17) Reported Meds & Prescriptions Reported Meds & Active Scripts Active Hydrocodone-Acetamin 5-325 mg (Hydrocodone/Acetaminophen) 5 Mg-325 Mg Tablet 1- 2 Tab PO Q6H PRN 14 Days Reported Metformin (Metformin HCl) 500 Mg Tab 500 Mg PO BIDPC Review of Systems Except as stated in HPI: all other systems reviewed are Neg General / Constitutional: No: Fever Eyes: No: Visual changes HENT: No: Headaches, Rhinorrhea, Congestion Cardiovascular: Positive: Diaphoresis, Syncope, No: Chest Pain or Discomfort Respiratory: No: Shortness of Breath Gastrointestinal: Positive: Abdominal Pain (Postop abdominal pain), No: Nausea , Vomiting Genitourinary: No: Dysuria Musculoskeletal: No: Pain Skin: No Rash Neurologic: Positive: Dizziness, Syncope, No: Weakness, Focal Abnormalities, Change in Mentation, Slurred Speech, Sensory Disturbance Psychiatric: No: Depression Endocrine: No: Polydipsia Hematologic/Lymphatic: No: Easy Bruising Physical Exam Narrative General: The patient is a well-developed well-nourished male in no acute distress. Head and Neck exam: Head is normocephalic atraumatic. Eyes: EOMI, pupils are equal round and reactive to light. Nose: Midline septum with pink mucous membranes Mouth: Dentition unremarkable. Moist mucus membranes. Posterior oropharynx is not erythematous. No tonsillar hypertrophy. Uvula midline. Airway patent. Neck: No palpable lymphadenopathy. No nuchal rigidity. No thyromegaly. Cardiovascular: Sinus tachycardia in the low 100 without murmurs, gallops, or rubs. No pulse deficit to the extremities on simultaneous auscultation and palpation of his radial artery. Lungs: Clear to auscultation bilaterally. No wheezes, rhonchi, or rales. Abdomen: Soft, with superficial discomfort on palpation around his postoperative incisions without any signs of edema, erythema, or purulent drainage. No guarding, rebound, or rigidity. Normal bowel sounds are audible. No tenderness on palpation of McBurney's point. The patient has an ileostomy noted with good output in the right lower quadrant of the abdomen. Extremities: No clubbing, cyanosis, or edema. 2+ pulses in all 4 extremities. No calf tenderness on palpation. Back: No costovertebral angle tenderness to palpation. Neurologic Exam: Grossly nonfocal Skin Exam: No rash noted. Intact skin that is warm and dry. Data Data Last Documented VS Vital Signs Date Time Temp Pulse Resp B/P (MAP) Pulse Ox O2 Delivery O2 Flow Rate FiO2 12/20/17 23:38 19 99 Room Air 12/20/17 23:21 2.00 12/20/17 23:19 98.8 85 128/78 (95) Orders Orders Electrocardiogram (12/20/17 23:30) Complete Blood Count With Diff (12/20/17 23:30) Basic Metabolic Panel (Bmp) (12/20/17 23:30) Creatine Kinase (Cpk) (12/20/17 23:30) Ckmb (Isoenzyme) Profile (12/20/17 23:30) Troponin I (12/20/17 23:30) Urinalysis - C+S If Indicated (12/20/17 23:30) Magnesium (Mg) (12/20/17 23:30) Chest, Single Ap (12/20/17 23:30) Iv Access Insert/Monitor (12/20/17 23:30) Ecg Monitoring (12/20/17 23:30) Oximetry (12/20/17 23:30) Sodium Chlor 0.9% 1000 Ml Inj (Ns 1000 M (12/20/17 23:30) CKMB (12/20/17 23:30) CKMB% (12/20/17 23:30) Sodium Chlorid 0.9% 500 Ml Inj (Ns 500 M (12/21/17 01:15) Urine Culture (12/21/17 01:05) Ed Discharge Order (12/21/17 01:54) Labs Laboratory Tests Test 12/20/17 23:30 12/21/17 01:05 White Blood Count 11.0 TH/MM3 Red Blood Count 5.23 MIL/MM3 Hemoglobin 14.2 GM/DL Hematocrit 41.8 % Mean Corpuscular Volume 79.9 FL Mean Corpuscular Hemoglobin 27.2 PG Mean Corpuscular Hemoglobin Concent 34.0 % Red Cell Distribution Width 14.1 % Platelet Count 259 TH/MM3 Mean Platelet Volume 8.8 FL Neutrophils (%) (Auto) 75.6 % Lymphocytes (%) (Auto) 15.7 % Monocytes (%) (Auto) 6.4 % Eosinophils (%) (Auto) 1.9 % Basophils (%) (Auto) 0.4 % Neutrophils # (Auto) 8.3 TH/MM3 Lymphocytes # (Auto) 1.7 TH/MM3 Monocytes # (Auto) 0.7 TH/MM3 Eosinophils # (Auto) 0.2 TH/MM3 Basophils # (Auto) 0.0 TH/MM3 CBC Comment DIFF FINAL Differential Comment Blood Urea Nitrogen 8 MG/DL Creatinine 0.67 MG/DL Random Glucose 212 MG/DL Calcium Level 9.2 MG/DL Magnesium Level 1.8 MG/DL Sodium Level 136 MEQ/L Potassium Level 3.7 MEQ/L Chloride Level 102 MEQ/L Carbon Dioxide Level 23.9 MEQ/L Anion Gap 10 MEQ/L Estimat Glomerular Filtration Rate 148 ML/MIN Total Creatine Kinase 240 U/L Creatine Kinase MB 1.5 NG/ML Troponin I LESS THAN 0.02 NG/ML Urine Color YELLOW Urine Turbidity HAZY Urine pH 5.0 Urine Specific [place] 1.014 Urine Protein 30 mg/dL Urine Glucose (UA) 70 mg/dL Urine Ketones 40 mg/dL Urine Occult Blood MOD Urine Nitrite NEG Urine Bilirubin NEG Urine Urobilinogen LESS THAN 2.0 MG/DL Urine Leukocyte Esterase TRACE Urine RBC /hpf Urine WBC 19 /hpf Urine Hyaline Casts 2 /lpf Urine White Blood Cell Casts 3 /lpf Urine Mucus FEW /lpf Microscopic Urinalysis Comment CULTURE INDICATED MDM Medical Decision Making Medical Screen Exam Complete: Yes Emergency Medical Condition: Yes Medical Record Reviewed: Yes Interpretation(s) Last Impressions Chest X-Ray 12/20/17 2330 Signed Impressions: Service Date/Time: Wednesday, December 20, 2017 23:39 - CONCLUSION: Underinflation with atelectasis at the lung bases. Otherwise, no acute finding is identified. [place] Mun[place] MD Differential Diagnosis Vasovagal syncope, versus medication side effect, versus orthostasis, versus dehydration, versus anemia Narrative Course During the course of the patient's emergency department visit, the patient's history, examination, and differential diagnosis were reviewed with the patient. The patient was placed on a cardiac cath lab manager with oximetry and frequent blood pressure monitoring. The patient had IV access obtained and blood work sent for analysis. The patient had an EKG done on arrival. The patient's EKG shows a sinus tachycardia rate of 107, QRS duration 90 ms, QTC [address] segment elevation is noted. A left anterior fascicular block is noted. The patient was initially provided normal saline a 1 L IV fluid bolus. The patient's laboratory studies were reviewed and remarkable for a white count of 11, hemoglobin 14.2, platelets 259 with neutrophils 75.6. Basic metabolic profile is remarkable for a glucose of 212, CPK 240, CK-MB 1.5, troponin I less than 0.02, urinalysis shows 30 protein, 70 glucose, 40 ketones, moderate occult blood, innumerable RBCs, 19 WBCs, no bacteria. Review of the record reveals that the patient had ureteral catheterization attached to a Brantley catheter by the urologist preoperatively. Radiology studies were reviewed and remarkable for a chest x-ray that shows underinflation with atelectasis at the bases, no other acute abnormality. Review the record reveals that the patient was on hydrocodone in the hospital and tolerated it well. He was discharged home on hydrocodone. I suspect that the patient is under hydrated with regarding his ileostomy output and also took pain medication on empty stomach which precipitated his syncope. A call has been placed out to Dr. Nelson to make her aware of his emergency department evaluation. I suspect that the patient will be able to be discharged home to follow-up as an outpatient. The patient is instructed regarding the importance of increasing his fluid intake specifically with water. I spoke to Dr. Diana regarding this patient's case who is covering for Dr. Nelson. He agreed with the above plan per he will communicate with Dr. Nelson regarding the urinalysis culture for follow-up. The patient is resting comfortably and feels better, is alert and in no distress. The patient's results and examination findings were discussed with the patient. The repeat examination is unremarkable and benign. The history, exam, diagnostic testing, and current condition do not suggest any significant pathology to warrant further testing, continued ED treatment, admission, or surgical evaluation at this point. The vital signs have been stable. The patient does not have uncontrollable pain, intractable vomiting, or other significant symptoms. The patient's condition is stable and appropriate for discharge. The patient will pursue further outpatient evaluation with a primary care physician or other designated or consulting physician as indicated in the discharge instructions. The patient expressed understanding and was agreeable with this plan. Physician Communication Physician Communication The patient's case including history, pertinent physical examination findings, and laboratory studies were discussed with Dr. Diana, the covering colorectal surgeon for Dr. Nelson. We discussed the patient's findings as far as his laboratory studies go, vital signs, exam, and urinalysis specifically. The patient has innumerable red blood cells. I did discuss with him this finding. He reports that the patient did have ureteral catheterization done bilaterally preop which was removed postoperatively. He felt that the findings on the urinalysis could be related to that procedure. He did not recommend antibiotic treatment at this time. A culture will be done which she will discuss with Dr. Nelson who will follow up regarding it. He agreed with the plan for the patient to be discharged home in continue to push fluids and take his pain medication in the future after eating something. Referrals: Nan Nelson MD 1 day Primary Care Physician 2 days Patient Instructions: Dehydration (ED), General Instructions, Syncope (ED) Med/Other Pt SpecificInfo: No Change to Meds Disposition: 01 DISCHARGE HOME Condition: Stable Flora Conklin MD Dec 21, 2017 00:26
[2017-12-21] MEDS ORDERED: SODIUM CHLORID 0.9% 500 ML INJ 500 ML IV ONE (01:15)
[2017-12-21 01:29] LABS: BILIRUBIN, URINE NEG (NEG); BLOOD, URINE MOD (NEG); GLUCOSE,URINE 70 mg/dL (NEG); HYALINE CAST, URINE 2 /lpf (RARE); KETONE, URINE 40 mg/dL (NEG); MUCUS URINE FEW /lpf (OCC); NITRITE,URINE NEG (NEG); URINE COLOR YELLOW (YELLW/STRAW); URINE LEUKOCYTE ESTERASE TRACE (NEG); WHITE BLOOD CELL CAST, URINE 3 /lpf
--- NOTE | 2017-12-21 10:55 | EKG ---
Date Performed: 12/20/2017 Time Performed: 23:16:45 PTAGE: 57 years EKG: SINUS TACHYCARDIA PATTERN CONSISTENT WITH PULMONARY DISEASE POOR R WAVE PROGRESSION LEFT AN TERIOR FASCICULAR BLOCK ABNORMAL ECG WARNING: DATA QUALITY MAY AFFECT INTERPRETATION NO PREVIOUS TRACING DOCTOR: William Jackson Interpretating Date/Time 12/21/2017 10:53:56
== END 2017-12-21 03:30 | disposition home or self-care (01) ==
LOC: NEPC 23:05
DX: C18.9 Malignant neoplasm of colon, unspecified (principal); E11.9 Type 2 diabetes mellitus without complications; R00.0 Tachycardia, unspecified; Z79.84 Long term (current) use of oral hypoglycemic drugs
CPT/HCPCS: 71045; 80048; 81001; 82550; 82552; 83735; 84484; 85025; 87077; 87086; 87186; 93005; 96360; 96361; 99285; J7030; J7040

== ENCOUNTER 2017-12-24 13:11 | Inpatient (IN) | payer MEDICAID, OTHER ==
[~2017-12-24] VITALS: Ht 175.3 cm; Wt 83.5 kg
[2017-12-24 13:36] VITALS: BP 127/85; PULSE 123; RESP 18; TEMP 97.2; O2SAT 97
[2017-12-24 13:47] VITALS: BP 146/96; PULSE 113; RESP 25; O2SAT 97
[2017-12-24] MEDS ORDERED: ZOFR4TAB PO (13:48)
[2017-12-24] MEDS ORDERED: SODIUM CHLOR 0.9% 1000 ML INJ 1,000 ML IV SCH (13:59)
[2017-12-24] MEDS ORDERED: ONDANSETRON HCL 4 MG/2 ML VIAL IVP ONE (14:00)
[2017-12-24] MEDS ORDERED: MORPHINE SULFATE 4 MG/ML INJ IV PUSH ONE ×2 (14:00→16:45)
[2017-12-24] MEDS ORDERED: SODIUM CHLORIDE 0.9% FLUSH 10 ML FLUSH IV FLUSH PRN ×2 (14:00→18:00)
--- NOTE | 2017-12-24 14:07 | PD ---
HPI Chief Complaint: Abdominal Pain Time Seen by Provider: 13:42 Travel History International Travel<30 days: No Contact w/Intl Traveler<30days: No Traveled to known affect area: No History of Present Illness HPI 57-year-old male presents to the emergency department for evaluation of abdominal pain and low back pain. Patient recently had colectomy for colon cancer and right lower quadrant ileostomy placed on December 16 was discharged on December 20. He was seen here later today on December 20 for a syncopal episode. He states his abdominal pain is worsening., Currently 10/10 throughout the entire abdomen, worse in the epigastric region that radiates to the lower back. He also reports associated shortness of breath. He states he has vomited, but not today. He denies any fevers, but admits to chills. He denies any chest pain. Patient has not yet started chemotherapy for colon cancer. His surgeon was Dr. Nan Nelson. He is taking hydrocodone for pain. He denies exacerbating or alleviating factors. Moderate severity. PFSH Past Medical History Heart Rhythm Problems: No Cancer: Yes (COLON) Cardiovascular Problems: No High Cholesterol: No Chest Pain: No Congestive Heart Failure: No Diabetes: Yes (TYPE 2) Patient Takes Glucophage: Yes Endocrine: Yes Gastrointestinal Disorders: Yes (COLON CA) GERD: Yes Genitourinary: No Hepatitis: No Hiatal Hernia: No Immune Disorder: No Musculoskeletal: No Neurologic: No Psychiatric: No Reproductive: No Respiratory: No Thyroid Disease: No Past Surgical History Abdominal Surgery: Yes (LEFT INGUINAL HERNIA REPAIR) AICD: No Body Medical Devices: RIGHT CHEST PORT Cardiac Surgery: No Ear Surgery: No Endocrine Surgery: No Eye Surgery: No Genitourinary Surgery: Yes (COLECTOMY) Joint Replacement: No Oral Surgery: No Pacemaker: No Thoracic Surgery: No Other Surgery: Yes Social History Alcohol Use: No Tobacco Use: No Substance Use: No Allergies-Medications (Allergen,Severity, Reaction): Coded Allergies: No Known Allergies (Unverified , 12/24/17) Reported Meds & Prescriptions Reported Meds & Active Scripts Active Hydrocodone-Acetamin 5-325 mg (Hydrocodone/Acetaminophen) 5 Mg-325 Mg Tablet 1- 2 Tab PO Q6H PRN 14 Days Reported Zofran (Ondansetron HCl) 4 Mg Tab 4 Mg PO Q8HR PRN Metformin (Metformin HCl) 500 Mg Tab 500 Mg PO BIDPC Review of Systems Except as stated in HPI: all other systems reviewed are Neg Physical Exam Narrative GENERAL: Well-nourished, well-developed male patient, afebrile. Patient is in moderate distress. SKIN: Focused skin assessment warm/dry. HEAD: Normocephalic. Atraumatic. EYES: No scleral icterus. No injection or drainage. NECK: Supple, trachea midline. No JVD or lymphadenopathy. CARDIOVASCULAR: Regular rate and rhythm without murmurs, gallops, or rubs. RESPIRATORY: Breath sounds equal bilaterally. No accessory muscle use. Lungs sounds are clear to auscultation. GASTROINTESTINAL: Abdomen has diffuse tenderness to palpation, worse in the epigastric region. Right lower quadrant ileostomy noted. No current stool in bag. MUSCULOSKELETAL: No cyanosis, or edema. BACK: Nontender without obvious deformity. No CVA tenderness. Data Data Last Documented VS Vital Signs Date Time Temp Pulse Resp B/P (MAP) Pulse Ox O2 Delivery O2 Flow Rate FiO2 12/24/17 16:59 109 23 159/87 (111) 100 Room Air 12/24/17 13:36 97.2 Orders Orders Complete Blood Count With Diff (12/24/17 13:59) Comprehensive Metabolic Panel (12/24/17 13:59) Lipase (12/24/17 13:59) Lactic Acid (12/24/17 13:59) Prothrombin Time / Inr (Pt) (12/24/17 13:59) Act Partial Throm Time (Ptt) (12/24/17 13:59) Urinalysis - C+S If Indicated (12/24/17 13:59) Ct Abd/Pel W Iv Contrast(Rout) (12/24/17 13:59) Iv Access Insert/Monitor (12/24/17 13:59) Ecg Monitoring (12/24/17 13:59) Oximetry (12/24/17 13:59) Morphine Inj (Morphine Inj) (12/24/17 14:00) Ondansetron Inj (Zofran Inj) (12/24/17 14:00) Sodium Chlor 0.9% 1000 Ml Inj (Ns 1000 M (12/24/17 13:59) Sodium Chloride 0.9% Flush (Ns Flush) (12/24/17 14:00) Electrocardiogram (12/24/17 13:59) Chest, Single Ap (12/24/17 13:59) Creatine Kinase (Cpk) (12/24/17 13:59) Troponin I (12/24/17 13:59) Iohexol 350 Inj (Omnipaque 350 Inj) (12/24/17 16:00) Morphine Inj (Morphine Inj) (12/24/17 16:45) Sodium Chlor 0.9% 1000 Ml Inj (Ns 1000 M (12/24/17 17:00) Admit Order (Ed Use Only) (12/24/17 17:12) Labs Laboratory Tests Test 12/24/17 14:15 12/24/17 16:52 White Blood Count 10.8 TH/MM3 Red Blood Count 5.82 MIL/MM3 Hemoglobin 15.5 GM/DL Hematocrit 46.3 % Mean Corpuscular Volume 79.5 FL Mean Corpuscular Hemoglobin 26.7 PG Mean Corpuscular Hemoglobin Concent 33.5 % Red Cell Distribution Width 14.2 % Platelet Count 359 TH/MM3 Mean Platelet Volume 8.6 FL Neutrophils (%) (Auto) 73.4 % Lymphocytes (%) (Auto) 12.8 % Monocytes (%) (Auto) 13.1 % Eosinophils (%) (Auto) 0.4 % Basophils (%) (Auto) 0.3 % Neutrophils # (Auto) 8.0 TH/MM3 Lymphocytes # (Auto) 1.4 TH/MM3 Monocytes # (Auto) 1.4 TH/MM3 Eosinophils # (Auto) 0.0 TH/MM3 Basophils # (Auto) 0.0 TH/MM3 CBC Comment DIFF FINAL Differential Comment Prothrombin Time 11.4 SEC Prothromb Time International Ratio 1.1 RATIO Activated Partial Thromboplast Time 22.9 SEC Blood Urea Nitrogen 10 MG/DL Creatinine 0.80 MG/DL Random Glucose 306 MG/DL Total Protein 7.0 GM/DL Albumin 3.4 GM/DL Calcium Level 9.3 MG/DL Alkaline Phosphatase 79 U/L Aspartate Amino Transf (AST/SGOT) 13 U/L Alanine Aminotransferase (ALT/SGPT) 25 U/L Total Bilirubin 0.6 MG/DL Sodium Level 130 MEQ/L Potassium Level 4.1 MEQ/L Chloride Level 91 MEQ/L Carbon Dioxide Level 29.1 MEQ/L Anion Gap 10 MEQ/L Estimat Glomerular Filtration Rate 121 ML/MIN Lactic Acid Level 2.7 mmol/L Total Creatine Kinase 56 U/L Troponin I LESS THAN 0.02 NG/ML Lipase 121 U/L Urine Color YELLOW Urine Turbidity CLEAR Urine pH 5.0 Urine Specific [place] GREATER THAN 1.050 Urine Protein TRACE mg/dL Urine Glucose (UA) 1000 mg/dL Urine Ketones 40 mg/dL Urine Occult Blood NEG Urine Nitrite NEG Urine Bilirubin NEG Urine Urobilinogen LESS THAN 2.0 MG/DL Urine Leukocyte Esterase NEG Urine RBC LESS THAN 1 /hpf Urine WBC 1 /hpf Microscopic Urinalysis Comment CULT NOT INDICATED MDM Medical Decision Making Medical Screen Exam Complete: Yes Emergency Medical Condition: Yes Medical Record Reviewed: Yes Interpretation(s) Last Impressions Chest X-Ray 12/24/17 1357 Signed Impressions: Service Date/Time: Sunday, December 24, 2017 14:06 - CONCLUSION: No significant change. Mild bilateral subsegmental atelectasis. Vitaliy Krishnamurthy MD Abdomen/Pelvis CT 12/24/17 [id number] Signed Impressions: Service Date/Time: Sunday, December 24, 2017 16:01 - CONCLUSION: 1. Evidence of prior colectomy with stoma in the right lower quadrant. Small bowel is diffusely dilated to a point just proximal to the stoma. Differential diagnosis includes ileus and distal obstruction. 2. Small amount of free fluid in the pelvis. Vitaliy Krishnamurthy MD Differential Diagnosis Postop pain versus dehydration versus electrolyte abnormality versus bowel obstruction Narrative Course 57-year-old male presents to the emergency department for evaluation of abdominal pain, recently underwent colectomy with right lower quadrant ileostomy. EKG, CBC, CMP, lipase, CK, troponin, lactic acid, PTT, PT/INR, UA are ordered and pending. Chest x-ray, CT abdomen/pelvis with IV contrast are ordered and pending. Patient is given normal saline 1 L IV bolus, morphine 4 mg IV, Zofran 4 mg IV. EKG shows sinus tachycardia, heart 115, no acute ST changes. CBC shows no acute abnormality. CMP shows hyponatremia of 130, hyperglycemia of 306. Lipase is 121. CK is 56. Troponin is less than 0.02. Lactic acid is 2.7. Coags show no acute abnormality. UA is pending. Chest x-ray shows no significant change. Mild bilateral subsegmental atelectasis. CT abdomen/pelvis shows evidence of prior colectomy with stoma in the right lower quadrant, small bowel is diffusely dilated to point just proximal to the stoma, differential diagnosis includes ileus and distal obstruction. Upon reevaluation, patient states that his pain has returned. He is complaining of severe pain to the abdomen. Contacted Dr. Biggs, who is on- call for Dr. Nelson. He recommends admission, IV rehydration. Hospitalist is paged for admission. Residents accepted admission. Diagnosis Primary Impression: Abdominal pain Qualified Codes: R10.84 - Generalized abdominal pain Additional Impression: Small bowel obstruction Admitting Information Admitting Physician Requests: Meredith Shelley Dec 24, 2017 14:07
[2017-12-24 14:33] LABS: BASOPHIL % 0.3 % (0.0-2.0); EOSINOPHIL % 0.4 % (0.0-4.0); HEMATOCRIT 46.3 % (39.0-51.0); HEMOGLOBIN 15.5 GM/DL (13.0-17.0); LYMPH % 12.8 % (9.0-44.0); LYMPHOCYTE # 1.4 TH/MM3 (1.0-4.8); MEAN CELL VOLUME 79.5 FL (80.0-100.0); MEAN CORPUSCULAR HEMOGLOBIN 26.7 PG (27.0-34.0); MEAN CORPUSCULAR HGB CONC 33.5 % (32.0-36.0); MEAN PLATELET VOLUME 8.6 FL (7.0-11.0); MONO % 13.1 % (0.0-8.0); MONOCYTE # 1.4 TH/MM3 (0-0.9); NEUT % 73.4 % (16.0-70.0); PLATELET COUNT 359 TH/MM3 (150-450); RED BLOOD COUNT 5.82 MIL/MM3 (4.50-5.90); RED CELL DISTRIBUTION WIDTH 14.2 % (11.6-17.2); WHITE BLOOD COUNT 10.8 TH/MM3 (4.0-11.0)
--- NOTE | 2017-12-24 14:35 | RADRPT ---
EXAM DATE/TIME: 12/24/2017 14:06 [facility] COMPARISON: CHEST SINGLE AP, December 20, 2017, 23:39. INDICATIONS : Shortness of breath MEDICAL HISTORY : Diabetes mellitus type II. Carcinoma, colon. SURGICAL HISTORY : Infusaport. ENCOUNTER: Initial ACUITY: 1 day PAIN SCORE: 0/10 LOCATION: Bilateral chest FINDINGS: Single AP view of the chest. Right-sided [id number]-[id number]-Gpnx remains in place. Mild linear subsegmental ate lectasis at the lung bases again seen. The lungs are otherwise clear. Cardiomediastinal silhouette wi thin normal limits. No evidence of pleural effusion or pneumothorax. CONCLUSION: No significant change. Mild bilateral subsegmental atelectasis. Vitaliy Krishnamurthy MD on December 24, 2017 at 14:33 Board Certified Radiologist. This report was verified electronically.
[2017-12-24 14:42] LABS: INTERNATIONAL NORMALIZED RATIO 1.1 RATIO; PROTHROMBIN TIME - PATIENT 11.4 SEC (9.8-11.6)
[2017-12-24 14:53] LABS: ALBUMIN 3.4 GM/DL (3.4-5.0); ALT (GPT) 25 U/L (12-78); AST (GOT) 13 U/L (15-37); BICARBONATE 29.1 MEQ/L (21.0-32.0); BLOOD UREA NITROGEN 10 MG/DL (7-18); CALCIUM 9.3 MG/DL (8.5-10.1); CHLORIDE 91 MEQ/L (98-107); GLOMERULAR FILTRATION RATE 121 ML/MIN (>89); GLUCOSE,RANDOM 306 MG/DL (74-106); SODIUM (NA) 130 MEQ/L (136-145)
[2017-12-24 14:57] LABS: ALKALINE PHOSPHATASE 79 U/L (45-117); TOTAL BILIRUBIN ADULT 0.6 MG/DL (0.2-1.0); TROPONIN I LESS THAN 0.02 NG/ML (0.02-0.05)
[2017-12-24] MEDS ORDERED: IOHEXOL 350 MG/ML 10 ML VIAL (for RAD DIAG) IVCONTRAST ONE (16:00)
--- NOTE | 2017-12-24 16:35 | RADRPT ---
EXAM DATE/TIME: 12/24/2017 16:01 [place] COMPARISON: No previous studies available for comparison. INDICATIONS : Diffuse abdomen pain and distention today. IV CONTRAST: 94 cc Omnipaque 350 (iohexol) IV ORAL CONTRAST: No oral contrast ingested. RADIATION DOSE: 11.76 CTDIvol (mGy) MEDICAL HISTORY : Carcinoma, colon. SURGICAL HISTORY : Inguinal hernia repair. colectomy ENCOUNTER: Initial ACUITY: 1 day PAIN SCALE: 7/10 LOCATION: Bilateral abdomen TECHNIQUE: Volumetric scanning of the abdomen and pelvis was performed. Using automated exposure control and ad justment of the mA and/or kV according to patient size, radiation dose was kept as low as reasonably achievable to obtain optimal diagnostic quality images. DICOM format image data is available electro nically for review and comparison. FINDINGS: LOWER LUNGS: Mild bilateral lower lung atelectasis. LIVER: Homogeneous density without lesion. There is no dilation of the biliary tree. No calcified gallston es. SPLEEN: Normal size without lesion. PANCREAS: Within normal limits. KIDNEYS: Normal in size and shape. There is no mass, stone or hydronephrosis. ADRENAL GLANDS: Within normal limits. VASCULAR: There is no aortic aneurysm. BOWEL/MESENTERY: Multiple dilated loops of small bowel are seen throughout the abdomen. These measure up to 5 cm in di ameter. Stoma is present in the right lower quadrant. There is evidence of prior colectomy. The small bowel is diffusely dilated to a point just proximal to the stoma. Multiple air-fluid levels in the s mall bowel. There is a second segment of bowel that extends from the stoma to the rectum and this is nondilated. Free fluid is seen in the dependent portion of the pelvis. No free air. ABDOMINAL WALL: Moderate superficial soft tissue edema in the flanks. RETROPERITONEUM: There is no lymphadenopathy. BLADDER: No wall thickening or mass. REPRODUCTIVE: Within normal limits. INGUINAL: There is no lymphadenopathy or hernia. MUSCULOSKELETAL: Within normal limits for patient age. CONCLUSION: 1. Evidence of prior colectomy with stoma in the right lower quadrant. Small bowel is diffusely dilat ed to a point just proximal to the stoma. Differential diagnosis includes ileus and distal obstructio n. 2. Small amount of free fluid in the pelvis. Vitaliy Krishnamurthy MD on December 24, 2017 at 16:27 Board Certified Radiologist. This report was verified electronically.
[2017-12-24 16:59] VITALS: BP 159/87; PULSE 109; RESP 23; O2SAT 100
[2017-12-24] MEDS ORDERED: SODIUM CHLOR 0.9% 1000 ML INJ 1,000 ML IV ONE (17:00)
[2017-12-24 17:30] LABS: BILIRUBIN, URINE NEG (NEG); BLOOD, URINE NEG (NEG); GLUCOSE,URINE 1000 mg/dL (NEG); KETONE, URINE 40 mg/dL (NEG); NITRITE,URINE NEG (NEG); URINE COLOR YELLOW (YELLW/STRAW); URINE LEUKOCYTE ESTERASE NEG (NEG)
--- NOTE | 2017-12-24 17:41 | HHI.HP ---
[facility] Service Family Medicine Primary Care Physician Jaime Sousa MD Admission Diagnosis abdominal pain, possible obstruction Diagnoses: Chief Complaint: abdominal pain International Travel<30 Days: No Contact w/Intl Traveler<30days: No Known Affected Area: No History of Present Illness Mr Curran is a 57YO male w/PMHx HTN, DM type 2 and colon cancer s/p colectomy and ileostomy on 12/16/17 who presents with abdominal pain has been constant since the colectomy on December 16. Pain is constant and 9-10/10 on pain scale all the time; it interrupts sleep; pain quality involves the back and feeling of pain referred across the entire abdomen. Pt feels like a hard boiled egg with bloating and low ostomy output, about 1/4 bag per day, that is mostly fluid. Pt feels too bloated to get the required fluid intake per day and subsequently feels thirsty all the time. Reports one bout of emesis on Tue that was large volume non-bloody and non-bilious, but had contents of lots of food and liquid items he had taken recently consumed. He also feels nauseous. Denies CP, DVT pain. Other findings as per ROS. (Balbir Maynard MD R1) Review of Systems Constitutional: COMPLAINS OF: Fatigue, Chills, Dizziness, Night Sweats, DENIES : Fever Endocrine: COMPLAINS OF: Polydipsia, DENIES: Polyuria Eyes: DENIES: Vision loss, Double Vision Ears, nose, mouth, throat: COMPLAINS OF: Throat pain, DENIES: Nasal discharge, Hoarseness, Running Nose Respiratory: COMPLAINS OF: Shortness of breath, DENIES: Cough Cardiovascular: COMPLAINS OF: Palpitations, Syncope (not since last admit on 12/20/17), DENIES: Chest pain Gastrointestinal: COMPLAINS OF: Abdominal pain, Nausea, Vomiting, Anorexia, DENIES: Black stools, Bloody stools, Constipation, Diarrhea Genitourinary: DENIES: Urinary frequency Musculoskeletal: COMPLAINS OF: Back pain Integumentary: DENIES: Rash Neurologic: COMPLAINS OF: Headache, DENIES: Seizures (Balbir Maynard MD R1) Past Family Social History Past Medical History DM type 2 Colon cancer HTN Past Surgical History Colectomy 12/16/17 Right sided hernia Chemo port Reported Medications Reported Meds & Active Scripts Active Hydrocodone-Acetamin 5-325 mg (Hydrocodone/Acetaminophen) 5 Mg-325 Mg Tablet 1- 2 Tab PO Q6H PRN 14 Days Reported Zofran (Ondansetron HCl) 4 Mg Tab 4 Mg PO Q8HR PRN Metformin (Metformin HCl) 500 Mg Tab 500 Mg PO BIDPC (Balbir Maynard MD R1) Allergies: Coded Allergies: No Known Allergies (Unverified , 12/24/17) Active Ordered Medications Current Medications Medications (Trade) Dose Ordered Sig/Angel Luis Route Start Time Stop Time Status Last Admin (NS Flush) 2 ml UNSCH PRN IV FLUSH 12/24/17 14:00 Sodium Chloride 1,000 ml @ 999 mls/hr BOLUS ONCE IV 12/24/17 17:00 12/24/17 18:00 12/24/17 17:00 Family History Father - tobacco and EtOH, DM Mother - none reported Grandmother and sister with DM Social History EtOH - none Tobacco - none Drugs - none Lives with girlfriend (Balbir Maynard MD R1) Physical Exam Vital Signs Vital Signs Date Time Temp Pulse Resp B/P (MAP) Pulse Ox O2 Delivery O2 Flow Rate FiO2 12/24/17 16:59 109 23 159/87 (111) 100 Room Air 12/24/17 13:47 113 25 146/96 (113) 97 Room Air 12/24/17 13:36 97.2 123 18 127/85 (99) 97 Physical Exam GENERAL: This is a well-nourished, well-developed patient in mild-moderate distress, looks bloated. SKIN: No rashes, ecchymoses or lesions. Cool and dry. HEAD: Atraumatic. Normocephalic. No temporal or scalp tenderness. EYES: Pupils equal round and reactive. Extraocular motions intact. No scleral icterus. No injection or drainage. ENT: Nose without drainage. Throat without erythema, tonsillar hypertrophy or exudate. Uvula midline. Airway patent. NECK: Trachea midline. No JVD or lymphadenopathy. Supple, nontender, no meningeal signs. CARDIOVASCULAR: Tachycardic regular rhythm without murmurs, gallops, or rubs. RESPIRATORY: Clear to auscultation. Breath sounds equal bilaterally. No wheezes , rales, or rhonchi. Resting comfortably on RA. GASTROINTESTINAL: Abdomen TTP in all quadrants, distended, moderately tense. No hepato-splenomegaly, or palpable masses. No guarding. MUSCULOSKELETAL: Extremities without clubbing, cyanosis, or edema. No joint tenderness, effusion, or edema noted. No calf tenderness. NEUROLOGICAL: AOx3. Cranial nerves II through XII intact. Motor and sensory grossly within normal limits. Normal speech. Laboratory Laboratory Tests Test 12/24/17 14:15 White Blood Count 10.8 Red Blood Count 5.82 Hemoglobin 15.5 Hematocrit 46.3 Mean Corpuscular Volume 79.5 Mean Corpuscular Hemoglobin 26.7 Mean Corpuscular Hemoglobin Concent 33.5 Red Cell Distribution Width 14.2 Platelet Count 359 Mean Platelet Volume 8.6 Neutrophils (%) (Auto) 73.4 Lymphocytes (%) (Auto) 12.8 Monocytes (%) (Auto) 13.1 Eosinophils (%) (Auto) 0.4 Basophils (%) (Auto) 0.3 Neutrophils # (Auto) 8.0 Lymphocytes # (Auto) 1.4 Monocytes # (Auto) 1.4 Eosinophils # (Auto) 0.0 Basophils # (Auto) 0.0 CBC Comment DIFF FINAL Differential Comment Prothrombin Time 11.4 Prothromb Time International Ratio 1.1 Activated Partial Thromboplast Time 22.9 Blood Urea Nitrogen 10 Creatinine 0.80 Random Glucose 306 Total Protein 7.0 Albumin 3.4 Calcium Level 9.3 Alkaline Phosphatase 79 Aspartate Amino Transf (AST/SGOT) 13 Alanine Aminotransferase (ALT/SGPT) 25 Total Bilirubin 0.6 Sodium Level 130 Potassium Level 4.1 Chloride Level 91 Carbon Dioxide Level 29.1 Anion Gap 10 Estimat Glomerular Filtration Rate 121 Lactic Acid Level 2.7 Total Creatine Kinase 56 Troponin I LESS THAN 0.02 Lipase 121 (Balbir Maynard MD R1) Result Diagram: 12/24/17 1415 12/24/17 1415 Imaging Last Impressions Chest X-Ray 12/24/17 1359 Signed Impressions: Service Date/Time: Sunday, December 24, 2017 14:06 - CONCLUSION: No significant change. Mild bilateral subsegmental atelectasis. Vitaliy Krishnamurthy MD Abdomen/Pelvis CT 12/24/17 1351 Signed Impressions: Service Date/Time: Sunday, December 24, 2017 16:01 - CONCLUSION: 1. Evidence of prior colectomy with stoma in the right lower quadrant. Small bowel is diffusely dilated to a point just proximal to the stoma. Differential diagnosis includes ileus and distal obstruction. 2. Small amount of free fluid in the pelvis. Vitaliy Krishnamurthy MD (Balbir Maynard MD R1) Septic Shock Reassessment Septic shock perfusion: reassessment completed (Balbir Maynard MD R1) Caprini VTE Risk Assessment Caprini VTE Risk Assessment: No/Low Risk (score <= 1) Caprini Risk Assessment Model Point Value = 1 Point Value = 2 Point Value = 3 Point Value = 5 Age 41-60 Minor surgery BMI > 25 kg/m2 Swollen legs Varicose veins or History of unexplained or recurrent spontaneous Oral contraceptives or hormone replacement Sepsis (< 1 month) Serious lung disease, including pneumonia (< 1 month) Abnormal pulmonary function Acute myocardial infarction Congestive heart failure (< 1 month) History of inflammatory bowel disease Medical patient at bed rest Age 61-74 Arthroscopic surgery Major open surgery (> 45 min) Laparoscopic surgery (> 45 min) Malignancy Confined to bed (> 72 hours) Immobilizing plaster cast Central venous access Age >= 75 History of VTE Family history of VTE Factor V Leiden Prothrombin [id number] Lupus anticoagulant Anticardiolipin antibodies Elevated serum homocysteine Heparin-induced thrombocytopenia Other congenital or acquired thrombophilia Stroke (< 1 month) Elective arthroplasty Hip, pelvis, or leg fracture Acute spinal cord injury (< 1 month) Prophylaxis Regimen Total Risk Factor Score Risk Level Prophylaxis Regimen 0-1 Low Early ambulation 2 Moderate Order ONE of the following: *Sequential Compression Device (SCD) *Heparin 5000 units SQ BID 3-4 Higher Order ONE of the following medications: *Heparin 5000 units SQ TID *Enoxaparin/Lovenox 40 mg SQ daily (WT < 150 kg, CrCl > 30 mL/min) *Enoxaparin/Lovenox 30 mg SQ daily (WT < 150 kg, CrCl > 10-29 mL/min) *Enoxaparin/Lovenox 30 mg SQ BID (WT < 150 kg, CrCl > 30 mL/min) AND/OR *Sequential Compression Device (SCD) 5 or more Highest Order ONE of the following medications: *Heparin 5000 units SQ TID (Preferred with Epidurals) *Enoxaparin/Lovenox 40 mg SQ daily (WT < 150 kg, CrCl > 30 mL/min) *Enoxaparin/Lovenox 30 mg SQ daily (WT < 150 kg, CrCl > 10-29 mL/min) *Enoxaparin/Lovenox 30 mg SQ BID (WT < 150 kg, CrCl > 30 mL/min) AND *Sequential Compression Device (SCD) (Balbir Maynard MD R1) Assessment and Plan Assessment and Plan 57YO male w/PMHx HTN, DM type 2 and colon cancer s/p colectomy and ileostomy 12/16 p/w continuing abdominal pain following surgery with low volume ostomy output, bloating and CT suggestive of ileus vs obstruction. Dr Biggs, surgery, consulted. Pt seen and dw Dr Jenna Victor Code Status Full code (Balbir Maynard MD R1) Attending Attestation Patient seen and examined. Case reviewed and discussed with the resident team. Agree with plan of care as discussed with me and documented in the resident note. appreciate help of Dr Biggs and colorectal surgery (Sheryl Mac MD) Problem List: (1) Ileus following gastrointestinal surgery ICD Codes: K91.30 - Postprocedural intestinal obstruction, unspecified as to partial versus complete Status: Acute Plan: Pt with abdominal pain and distension following colectomy/ileostomy on ; CT abdomen/pelvis showing air-fluid levels in the small bowel -General surgery consulted--appreciate recs -NG tube for decompression--1500ml out thus far -Reglan 10mg IV q8h -Zofran 4mg IV q6h PRN -Morphine 2mg IV q3h PRN pain 1-6 -Morphine 4mg IV q3h PRN pain 7-10 -Hold bowel regimen (2) Cancer of transverse colon ICD Codes: C18.4 - Malignant neoplasm of transverse colon Plan: Pt is s/p ileostomy/colectomy on 12/16/17 for colon cancer (3) Diabetes mellitus type 2 in nonobese ICD Codes: E11.9 - Type 2 diabetes mellitus without complications Status: Chronic Plan: Pt on Metformin BID for DM type 2 -Hold Metformin -Low SSI -A1C pending (4) Abdominal pain ICD Codes: R10.9 - Unspecified abdominal pain Status: Acute Plan: Abdominal pain 2/2 bloating; plan as above (5) FEN/GI/PPx Status: Acute Plan: Fluids: NS IVF @ 150ml/hr Electrolytes: hyponatremia 130; likely 2/2 ileus; NG tube as above; check BMP in AM Nutrition: NPO GI: Protonix 40mg IV daily PPx: SCDs Zofran as above (Balbir Maynard MD R1) Problem Qualifiers (1) Abdominal pain: Qualified Codes: R10.84 - Generalized abdominal pain Balbir Maynard MD R1 Dec 24, 2017 17:41 Sheryl Mac MD Dec 25, 2017 13:43
[2017-12-24] MEDS ORDERED: ACETAMINOPHEN 325 MG TAB PO PRN (18:00)
[2017-12-24] MEDS ORDERED: LACTULOSE SYRUP 20 GM/30 ML CUP PO PRN (18:00)
[2017-12-24] MEDS ORDERED: SENNOSIDES 8.6 MG TAB PO PRN (18:00)
[2017-12-24] MEDS ORDERED: BISACODYL 10 MG SUPP RECTAL PRN (18:00)
[2017-12-24] MEDS ORDERED: LORazepam 2 MG/ML VIAL IM ONE (18:00)
[2017-12-24] MEDS ORDERED: MORPHINE SULFATE 2 MG/ML INJ IV PUSH PRN (18:00)
[2017-12-24] MEDS ORDERED: ONDANSETRON HCL 4 MG/2 ML VIAL IVP PRN (18:00)
[2017-12-24] MEDS ORDERED: NALOXONE HCL 0.4 MG/ML AMP IV PUSH PRN (18:00)
[2017-12-24] MEDS ORDERED: MAGNESIUM HYDROXIDE SUSP 30 ML CUP PO PRN (18:00)
[2017-12-24] MEDS: PANTOPRAZOLE SODIUM 40 MG VIAL IV PUSH SCH (18:26)
[2017-12-24] MEDS: METOCLOPRAMIDE HCL 10 MG/2 ML VIAL IV PUSH SCH ×2 (18:26→21:49)
[2017-12-24] MEDS: SODIUM CHLOR 0.9% 1000 ML INJ 1,000 ML IV SCH (18:27)
[2017-12-24] MEDS ORDERED: DEXTROSE 50% IN WATER 50 ML VIAL(D50) IV PUSH PRN (18:30)
[2017-12-24] MEDS ORDERED: GLUCAGON 1 MG/ML VIAL OTHER PRN (18:30)
[2017-12-24 20:00] VITALS: BP 98/57; PULSE 97; RESP 18; TEMP 97; O2SAT 99
[2017-12-24] MEDS: SODIUM CHLORIDE 0.9% FLUSH 10 ML FLUSH IV FLUSH SCH (21:00)
[2017-12-24] MEDS: MORPHINE SULFATE 4 MG/ML INJ IV PUSH PRN (21:49)
[2017-12-24 22:00] VITALS: O2SAT 94
--- NOTE | 2017-12-24 22:16 | EKG ---
Date Performed: 12/24/2017 Time Performed: 14:14:31 PTAGE: 57 years EKG: SINUS TACHYCARDIA POSSIBLE LEFT ATRIAL ENLARGEMENT PATTERN CONSISTENT WITH PULMONARY DISEAS E LEFT ANTERIOR FASCICULAR BLOCK ABNORMAL ECG No significant change from prior electrocardiogram. PREVIOUS TRACING : 12/20/2017 23.16 DOCTOR: Raghav Galvez Interpretating Date/Time 12/24/2017 22:14:41
[2017-12-24] MEDS: PHENOL 1.4% SOLN 180 ML BTL OROPHARYNG PRN (22:54)
[2017-12-24] MEDS: INSULIN ASPART SUPPLEMENTAL SCALE SQ SCH (22:56)
[2017-12-25] VITALS: BP 152/82; PULSE 125; RESP 19; TEMP 96; O2SAT 95
[2017-12-25] MEDS: SODIUM CHLOR 0.9% 1000 ML INJ 1,000 ML IV SCH (01:02)
[2017-12-25] MEDS: METOCLOPRAMIDE HCL 10 MG/2 ML VIAL IV PUSH SCH ×2 (05:15→13:34)
[2017-12-25] MEDS: PHENOL 1.4% SOLN 180 ML BTL OROPHARYNG PRN (05:17)
[2017-12-25 07:40] LABS: AUTOMATED NEUTROPHIL # 8.9 TH/MM3 (1.8-7.7); BASOPHIL % 0.3 % (0.0-2.0); EOSINOPHIL # 0.1 TH/MM3 (0-0.4); EOSINOPHIL % 1.3 % (0.0-4.0); HEMATOCRIT 38.1 % (39.0-51.0); LYMPH % 10.6 % (9.0-44.0); LYMPHOCYTE # 1.2 TH/MM3 (1.0-4.8); MEAN CELL VOLUME 79.4 FL (80.0-100.0); MEAN PLATELET VOLUME 8.2 FL (7.0-11.0); MONO % 11.9 % (0.0-8.0); MONOCYTE # 1.4 TH/MM3 (0-0.9); NEUT % 75.9 % (16.0-70.0); PLATELET COUNT 323 TH/MM3 (150-450); RED CELL DISTRIBUTION WIDTH 14.1 % (11.6-17.2); WHITE BLOOD COUNT 11.7 TH/MM3 (4.0-11.0)
[2017-12-25 08:00] VITALS: BP 155/84; PULSE 98; RESP 18; TEMP 98; O2SAT 98
[2017-12-25 08:43] LABS: ALBUMIN 2.7 GM/DL (3.4-5.0); ALKALINE PHOSPHATASE 65 U/L (45-117); ALT (GPT) 19 U/L (12-78); AST (GOT) 10 U/L (15-37); BICARBONATE 30.6 MEQ/L (21.0-32.0); BLOOD UREA NITROGEN 8 MG/DL (7-18); CALCIUM 8.3 MG/DL (8.5-10.1); CHLORIDE 99 MEQ/L (98-107); CREATININE 0.73 MG/DL (0.60-1.30); GLOMERULAR FILTRATION RATE 134 ML/MIN (>89); GLUCOSE,RANDOM 218 MG/DL (74-106); SODIUM (NA) 137 MEQ/L (136-145); TOTAL BILIRUBIN ADULT 0.5 MG/DL (0.2-1.0); TOTAL PROTEIN 5.6 GM/DL (6.4-8.2)
--- NOTE | 2017-12-25 08:57 | HHI.HP ---
[facility] Service Family Medicine Primary Care Physician Jaime Sousa MD Admission Diagnosis abdominal pain, possible obstruction Diagnoses: (1) Ileus following gastrointestinal surgery Diagnosis: Principal (2) Cancer of transverse colon Diagnosis: Principal (3) Diabetes mellitus type 2 in nonobese Diagnosis: Principal (4) Abdominal pain Diagnosis: Principal (5) FEN/GI/PPx Diagnosis: [place] International Travel<30 Days: No Contact w/Intl Traveler<30days: No Known Affected Area: No History of Present Illness Mr Curran is a 57YO male w/PMHx HTN, DM type 2 and colon cancer s/p colectomy and ileostomy on 12/16/17 who presented with abdominal pain that had been constant since the colectomy on December 16. Pain is constant and 9-10/10 on pain scale all the time; it interrupts sleep; pain quality involves the back and feeling of pain referred across the entire abdomen. Pt feels like a hard boiled egg with bloating and low ostomy output, about 1/4 bag per day, that is mostly fluid. Pt feels too bloated to get the required fluid intake per day and subsequently feels thirsty all the time. Reports one bout of emesis on Tue that was large volume non-bloody and non-bilious, but had contents of lots of food and liquid items he had taken recently consumed. He also felt nauseous. Denies CP, DVT pain. Other findings as per ROS. He had an NG tube placed in the ED and had a quick 1200 ccs out the tube. He instantly felt less distended and his abdominal pain is vastly improved this am. he has very little colostomy output today and has bilious fluid draining into his NG. Review of Systems Other Constitutional: COMPLAINS OF: Fatigue, Chills, Dizziness, Night Sweats, DENIES : Fever Endocrine: COMPLAINS OF: Polydipsia, DENIES: Polyuria Eyes: DENIES: Vision loss, Double Vision Ears, nose, mouth, throat: COMPLAINS OF: Throat pain, DENIES: Nasal discharge, Hoarseness, Running Nose Respiratory: COMPLAINS OF: Shortness of breath, DENIES: Cough Cardiovascular: COMPLAINS OF: Palpitations, Syncope (not since last admit on 12/20/17), DENIES: Chest pain Gastrointestinal: COMPLAINS OF: Abdominal pain, Nausea, Vomiting, Anorexia, DENIES: Black stools, Bloody stools, Constipation, Diarrhea Genitourinary: DENIES: Urinary frequency Musculoskeletal: COMPLAINS OF: Back pain Integumentary: DENIES: Rash Neurologic: COMPLAINS OF: Headache, DENIES: Seizures Past Family Social History Past Medical History DM type 2 Colon cancer HTN Past Surgical History Colectomy 12/16/17 Right sided hernia Chemo port Allergies: Coded Allergies: No Known Allergies (Unverified , 12/24/17) Family History Father - tobacco and EtOH, DM Mother - none reported Grandmother and sister with DM Social History EtOH - none Tobacco - none Drugs - none Lives with girlfriend Physical Exam Vital Signs Vital Signs Date Time Temp Pulse Resp B/P (MAP) Pulse Ox O2 Delivery O2 Flow Rate FiO2 12/25/17 00:00 96.0 125 19 152/82 (105) 95 12/24/17 22:00 94 21 12/24/17 20:00 97.0 97 18 98/57 (71) 99 12/24/17 16:59 109 23 159/87 (111) 100 Room Air 12/24/17 13:47 113 25 146/96 (113) 97 Room Air 12/24/17 13:36 97.2 123 18 127/85 (99) 97 Physical Exam GENERAL: This is a well-nourished, well-developed patient in no distress, has NG tube in his nose SKIN: No rashes, ecchymoses or lesions. Cool and dry. HEAD: Atraumatic. Normocephalic. EYES: Pupils equal round and reactive. Extraocular motions intact. No scleral icterus. No injection or drainage. ENT: Nose without drainage. Airway patent. NECK: Trachea midline. No JVD or lymphadenopathy. Supple, nontender, no meningeal signs. CARDIOVASCULAR: Tachycardic regular rhythm without murmurs, gallops, or rubs. RESPIRATORY: Clear to auscultation. Breath sounds equal bilaterally. No wheezes , rales, or rhonchi. Resting comfortably on RA. GASTROINTESTINAL: Abdomen nontender in all quadrants, nondistended. No hepato- splenomegaly, or palpable masses. No guarding. MUSCULOSKELETAL: Extremities without clubbing, cyanosis, or edema. No joint tenderness, effusion, or edema noted. No calf tenderness. NEUROLOGICAL: AOx3. Cranial nerves II through XII intact. Motor and sensory grossly within normal limits. Normal speech. Laboratory Laboratory Tests Test 12/24/17 14:15 12/24/17 16:52 12/25/17 07:04 White Blood Count 10.8 11.7 Red Blood Count 5.82 4.80 Hemoglobin 15.5 13.0 Hematocrit 46.3 38.1 Mean Corpuscular Volume 79.5 79.4 Mean Corpuscular Hemoglobin 26.7 27.0 Mean Corpuscular Hemoglobin Concent 33.5 34.0 Red Cell Distribution Width 14.2 14.1 Platelet Count 359 323 Mean Platelet Volume 8.6 8.2 Neutrophils (%) (Auto) 73.4 75.9 Lymphocytes (%) (Auto) 12.8 10.6 Monocytes (%) (Auto) 13.1 11.9 Eosinophils (%) (Auto) 0.4 1.3 Basophils (%) (Auto) 0.3 0.3 Neutrophils # (Auto) 8.0 8.9 Lymphocytes # (Auto) 1.4 1.2 Monocytes # (Auto) 1.4 1.4 Eosinophils # (Auto) 0.0 0.1 Basophils # (Auto) 0.0 0.0 CBC Comment DIFF FINAL DIFF FINAL Differential Comment Prothrombin Time 11.4 Prothromb Time International Ratio 1.1 Activated Partial Thromboplast Time 22.9 Blood Urea Nitrogen 10 8 Creatinine 0.80 0.73 Random Glucose 306 218 Total Protein 7.0 5.6 Albumin 3.4 2.7 Calcium Level 9.3 8.3 Alkaline Phosphatase 79 65 Aspartate Amino Transf (AST/SGOT) 13 10 Alanine Aminotransferase (ALT/SGPT) 25 19 Total Bilirubin 0.6 0.5 Sodium Level 130 137 Potassium Level 4.1 4.0 Chloride Level 91 99 Carbon Dioxide Level 29.1 30.6 Anion Gap 10 7 Estimat Glomerular Filtration Rate 121 134 Lactic Acid Level 2.7 Total Creatine Kinase 56 Troponin I LESS THAN 0.02 Lipase 121 80 Urine Color YELLOW Urine Turbidity CLEAR Urine pH 5.0 Urine Specific [place] GREATER THAN 1.050 Urine Protein TRACE Urine Glucose (UA) 1000 Urine Ketones 40 Urine Occult Blood NEG Urine Nitrite NEG Urine Bilirubin NEG Urine Urobilinogen LESS THAN 2.0 Urine Leukocyte Esterase NEG Urine RBC LESS THAN 1 Urine WBC 1 Microscopic Urinalysis Comment CULT NOT INDICATED Result Diagram: 12/25/1770312/25/17703 Imaging Last Impressions Chest X-Ray 12/24/17 1359 Signed Impressions: Service Date/Time: Sunday, December 24, 2017 14:06 - CONCLUSION: No significant change. Mild bilateral subsegmental atelectasis. Vitaliy Krishnamurthy MD Abdomen/Pelvis CT 12/24/17 1359 Signed Impressions: Service Date/Time: Sunday, December 24, 2017 16:01 - CONCLUSION: 1. Evidence of prior colectomy with stoma in the right lower quadrant. Small bowel is diffusely dilated to a point just proximal to the stoma. Differential diagnosis includes ileus and distal obstruction. 2. Small amount of free fluid in the pelvis. Vitaliy Krishnamurthy MD Caprini VTE Risk Assessment Caprini VTE Risk Assessment: No/Low Risk (score <= 1) Caprini Risk Assessment Model Point Value = 1 Point Value = 2 Point Value = 3 Point Value = 5 Age 41-60 Minor surgery BMI > 25 kg/m2 Swollen legs Varicose veins or History of unexplained or recurrent spontaneous Oral contraceptives or hormone replacement Sepsis (< 1 month) Serious lung disease, including pneumonia (< 1 month) Abnormal pulmonary function Acute myocardial infarction Congestive heart failure (< 1 month) History of inflammatory bowel disease Medical patient at bed rest Age 61-74 Arthroscopic surgery Major open surgery (> 45 min) Laparoscopic surgery (> 45 min) Malignancy Confined to bed (> 72 hours) Immobilizing plaster cast Central venous access Age >= 75 History of VTE Family history of VTE Factor V Leiden Prothrombin [id number] Lupus anticoagulant Anticardiolipin antibodies Elevated serum homocysteine Heparin-induced thrombocytopenia Other congenital or acquired thrombophilia Stroke (< 1 month) Elective arthroplasty Hip, pelvis, or leg fracture Acute spinal cord injury (< 1 month) Prophylaxis Regimen Total Risk Factor Score Risk Level Prophylaxis Regimen 0-1 Low Early ambulation 2 Moderate Order ONE of the following: *Sequential Compression Device (SCD) *Heparin 5000 units SQ BID 3-4 Higher Order ONE of the following medications: *Heparin 5000 units SQ TID *Enoxaparin/Lovenox 40 mg SQ daily (WT < 150 kg, CrCl > 30 mL/min) *Enoxaparin/Lovenox 30 mg SQ daily (WT < 150 kg, CrCl > 10-29 mL/min) *Enoxaparin/Lovenox 30 mg SQ BID (WT < 150 kg, CrCl > 30 mL/min) AND/OR *Sequential Compression Device (SCD) 5 or more Highest Order ONE of the following medications: *Heparin 5000 units SQ TID (Preferred with Epidurals) *Enoxaparin/Lovenox 40 mg SQ daily (WT < 150 kg, CrCl > 30 mL/min) *Enoxaparin/Lovenox 30 mg SQ daily (WT < 150 kg, CrCl > 10-29 mL/min) *Enoxaparin/Lovenox 30 mg SQ BID (WT < 150 kg, CrCl > 30 mL/min) AND *Sequential Compression Device (SCD) Assessment and Plan Assessment and Plan 57YO male w/PMHx HTN, DM type 2 and colon cancer s/p colectomy and ileostomy 12/16 p/w continuing abdominal pain following surgery with low volume ostomy output, bloating and CT suggestive of ileus vs obstruction. Dr Biggs, surgery, consulted. Problem List: (1) Ileus following gastrointestinal surgery ICD Codes: K91.30 - Postprocedural intestinal obstruction, unspecified as to partial versus complete Status: Acute Plan: Pt with abdominal pain and distension following colectomy/ileostomy on ; CT abdomen/pelvis showing air-fluid levels in the small bowel and stomach -colorectal surgery consulted--appreciate recs -NG tube for decompression--1500ml out first day and more continuing -Zofran 4mg IV q6h PRN held reglan until Dr Biggs restarted after checking anastomosis -Morphine 2mg IV q3h PRN pain 1-6 -Morphine 4mg IV q3h PRN pain 7-10 -Hold bowel regimen (2) Cancer of transverse colon ICD Codes: C18.4 - Malignant neoplasm of transverse colon Plan: Pt is s/p ileostomy/colectomy on 12/16/17 for colon cancer (3) Diabetes mellitus type 2 in nonobese ICD Codes: E11.9 - Type 2 diabetes mellitus without complications Status: Chronic Plan: Pt on Metformin BID for DM type 2 -Hold Metformin -Low SSI -A1C pending (4) Abdominal pain ICD Codes: R10.9 - Unspecified abdominal pain Status: Acute Plan: Abdominal pain 2/2 bloating; plan as above (5) FEN/GI/PPx Status: Acute Plan: Fluids: NS IVF @ 150ml/hr Electrolytes: hyponatremia 130; likely 2/2 ileus; NG tube as above; check BMP in AM Nutrition: NPO GI: Protonix 40mg IV daily PPx: SCDs unsure if he will need further procedures Zofran as above Problem Qualifiers (1) Abdominal pain: Qualified Codes: R10.84 - Generalized abdominal pain Sheryl Mac MD Dec 25, 2017 08:57
[2017-12-25] MEDS: SODIUM CHLORIDE 0.9% FLUSH 10 ML FLUSH IV FLUSH SCH ×2 (09:00→21:00)
[2017-12-25] MEDS: INSULIN ASPART SUPPLEMENTAL SCALE SQ SCH ×4 (09:12→21:08)
[2017-12-25] MEDS: MORPHINE SULFATE 4 MG/ML INJ IV PUSH PRN ×4 (09:15→21:07)
--- NOTE | 2017-12-25 11:01 | HHI.PR ---
Subjective Remarks C/R Surg afebrile, VSS UO ?? NGT mod no stoma output Objective - Vital Signs Date Time Temp Pulse Resp B/P (MAP) Pulse Ox O2 Delivery O2 Flow Rate FiO2 12/25/17 08:00 98.0 98 18 155/84 (107) 98 12/24/17 22:00 21 12/24/17 16:59 Room Air Result Diagram: 12/25/17 0704 12/25/17 0704 Objective Remarks PE alert Abd - softer, still, full, stoma pink A/P Assessment and Plan Imp: better hydration check procto this AM decr IVF Joaquín Pinto MD Dec 25, 2017 11:01
--- NOTE | 2017-12-25 11:24 | MP ---
cc: Joaquín Biggs MD DATE OF OPERATION: 12/25/2017 PREOPERATIVE DIAGNOSIS: Recent proctosigmoidectomy, abdominal pain, postoperative ileus. PROCEDURE: Flexible sigmoidoscopy. POSTOPERATIVE DIAGNOSIS: 1. Normal postoperative anastomosis with good bowel viability. 2. No ischemic changes. 3. Intact staple line. SURGEON: Joaquín Biggs MD PROCEDURE: Patient was placed in the left lateral decubitus position. Rectal exam confirmed the emptiness of the rectal vault. Olympus pediatric colonoscope was introduced into the rectum and advanced easily through the anastomosis into the proximal bowel. The bowel did have good viability, color was excellent, and good lumen size. The scope was then gradually withdrawn, noting the anastomosis appeared to be intact, no evidence of any dehiscence or areas of ischemic mucosal change. Distal bowel was pretty unremarkable. Patient tolerated the procedure quite well and was brought to the recovery room in stable condition. Joaquín Biggs MD AHR/TI , 11:04 AM , 11:23 AM
--- NOTE | 2017-12-25 11:31 | MB ---
cc: Joaquín Biggs MD DATE OF CONSULT: 12/24/2017 REASON FOR CONSULTATION: Abdominal pain, status post recent LAR for colon cancer. HISTORY OF PRESENT ILLNESS: Mr. Curran is a 57-year-old male, operated on by Dr. 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 He tolerated surgery well, had a diverting ileostomy placed at that time. The patient was home, being seen in the emergency room a day or so ago for medication reaction. Complains of additional abdominal pain, distention, inability to take any oral liquids, and very little out his ileostomy. Denies any fever or chills. No rectal drainage or bleeding. No shortness of breath. Patient was seen in the emergency room and CAT scan was done, showing a very large, distended stomach and air fluid levels in the small bowel consistent with postop ileus. He was admitted for additional workup and evaluation. Please see the history and physical for more complete past medical and surgical history. PERTINENT PHYSICAL EXAMINATION: A very pleasant, heavyset, muscular male, in no acute distress. HEENT: Remarkable for very dry, but pink membranes. Nonicteric sclerae. NECK: Supple without gross adenopathy. CHEST: Relatively clear. Diminished at the bases. HEART: Had a regular rhythm. Slight tachycardia. ABDOMEN: Quite large, tympanic, tender in the upper abdomen. No rebound or guarding. Incisions are all well healed. RECTAL: Revealed benign tone. No masses or tenderness. No blood on the finger. EXTREMITIES: Showed no cyanosis or clubbing. Minimal 1+ pedal edema. CT scan was reviewed, showing postop changes with some fluid in the pelvis. Previous pelvic anastomosis appeared to be intact, although contrast was not administered. A very large, distended stomach with air fluid levels was also noted. Distention of the small bowel without any discrete point of transition. IMPRESSION: Postoperative colon resection. Nasogastric tube was placed, releasing about 1500 mL of gastric fluid. Marked decompression of his abdomen with relief from the patient. Would continue nasogastric suction, replace his fluid losses, and possibly arrange for a sigmoidoscopy to evaluate the anastomosis for ischemia or evidence of anastomotic leak. He does appear to be a lot more stable now that the nasogastric tube has been placed. We will monitor his progress over the next 12 hours, repeat his labs, and try to get him out of bed. Continue respiratory therapy to prevent atelectasis. Any changes prior to evaluation in the morning, nurses were instructed to call for further intervention. Joaquín Biggs MD AHR/TI , 11:09 AM , 11:30 AM
[2017-12-25 12:00] VITALS: BP 150/79; PULSE 95; RESP 18; TEMP 95.9; O2SAT 95
[2017-12-25] MEDS: DEXT 5%-NACL 0.45% 1000 ML INJ 1,000 ML IV SCH ×3 (13:34→18:11)
[2017-12-25 16:00] VITALS: BP 155/78; PULSE 101; RESP 20; TEMP 97.3; O2SAT 96
[2017-12-25] MEDS: PANTOPRAZOLE SODIUM 40 MG VIAL IV PUSH SCH (18:05)
[2017-12-25 20:00] VITALS: BP 130/72; PULSE 97; RESP 18; TEMP 96.5; O2SAT 98
[2017-12-26] VITALS: BP 142/70; PULSE 89; RESP 18; TEMP 97.2; O2SAT 97
[2017-12-26] MEDS: DEXT 5%-NACL 0.45% 1000 ML INJ 1,000 ML IV SCH ×2 (01:54→09:33)
[2017-12-26] MEDS: MORPHINE SULFATE 4 MG/ML INJ IV PUSH PRN ×3 (05:54→23:45)
[2017-12-26 06:16] LABS: HEMATOCRIT 36.2 % (39.0-51.0); MEAN CELL VOLUME 80.4 FL (80.0-100.0); MEAN CORPUSCULAR HEMOGLOBIN 26.7 PG (27.0-34.0); MEAN CORPUSCULAR HGB CONC 33.2 % (32.0-36.0); MEAN PLATELET VOLUME 7.9 FL (7.0-11.0); PLATELET COUNT 311 TH/MM3 (150-450); RED CELL DISTRIBUTION WIDTH 13.8 % (11.6-17.2); WHITE BLOOD COUNT 10.9 TH/MM3 (4.0-11.0)
[2017-12-26 06:31] LABS: ALBUMIN 2.7 GM/DL (3.4-5.0); ALT (GPT) 17 U/L (12-78); AST (GOT) 8 U/L (15-37); BICARBONATE 30.5 MEQ/L (21.0-32.0); BLOOD UREA NITROGEN 5 MG/DL (7-18); CALCIUM 8.1 MG/DL (8.5-10.1); CHLORIDE 97 MEQ/L (98-107); CREATININE 0.68 MG/DL (0.60-1.30); GLOMERULAR FILTRATION RATE 146 ML/MIN (>89); GLUCOSE,RANDOM 253 MG/DL (74-106); SODIUM (NA) 133 MEQ/L (136-145)
[2017-12-26 06:34] LABS: ALKALINE PHOSPHATASE 63 U/L (45-117); TOTAL BILIRUBIN ADULT 0.5 MG/DL (0.2-1.0); TOTAL PROTEIN 5.7 GM/DL (6.4-8.2)
[2017-12-26 08:00] VITALS: BP 155/74; PULSE 93; RESP 18; TEMP 97.5; O2SAT 95
[2017-12-26] MEDS ORDERED: POTASSIUM CHLORIDE 10 MEQ CONTROLLED RELEASE TAB PO ONE (08:15)
[2017-12-26] MEDS: SODIUM CHLORIDE 0.9% FLUSH 10 ML FLUSH IV FLUSH SCH ×2 (09:00→21:00)
[2017-12-26] MEDS: INSULIN ASPART SUPPLEMENTAL SCALE SQ SCH ×4 (09:33→21:42)
[2017-12-26 12:00] VITALS: BP 133/74; PULSE 86; RESP 16; TEMP 98; O2SAT 95
--- NOTE | 2017-12-26 12:01 | HHI.FPPN ---
Subjective Remarks No acute issues overnight. Vitals are stable, patient remains afebrile. He is starting to have an appetite and feeling better overall. He continues to have some abdominal discomfort, but has noticed more output through his ostomy bag. He also notes that the amount of output from his NG tube is decreasing. He denies any chest pain, shortness of breath, fever, chills, or malaise. NG tube output was 1050 mL's in the past 24 hours and stool output was 400 mL's in the past 24 hours. (Sushma Montero MD, R3) Objective Vitals Vital Signs Date Time Temp Pulse Resp B/P (MAP) Pulse Ox O2 Delivery O2 Flow Rate FiO2 12/26/17 08:00 97.5 93 18 155/74 (101) 95 12/26/17 00:00 97.2 89 18 142/70 (94) 97 12/25/17 20:00 96.5 97 18 130/72 (91) 98 12/25/17 19:50 21 12/25/17 16:00 97.3 101 20 155/78 (103) 96 12/25/17 12:00 95.9 95 18 150/79 (102) 95 I/O 12/25/17 12/25/17 12/25/17 12/26/17 12/26/17 12/26/17 07:00 15:00 23:00 07:00 15:00 23:00 Intake Total 1000 ml 1000 ml 1480 ml 1180 ml Output Total 400 ml 100 ml 900 ml 1050 ml 150 ml Balance 600 ml 900 ml 580 ml 130 ml -150 ml Intake Oral 0 ml 480 ml 180 ml IV Total 1000 ml 1000 ml 1000 ml 1000 ml Output Urine Total 100 ml 200 ml 700 ml Stool Total 200 ml 200 ml 150 ml Gastric Drainage Total 400 ml 500 ml 150 ml # Voids 2 (Sushma Montero MD, R3) Result Diagram: 12/26/17 0545 12/26/17 0545 Imaging Last Impressions Chest X-Ray 12/24/17 326 Signed Impressions: Service Date/Time: Sunday, December 24, 2017 14:06 - CONCLUSION: No significant change. Mild bilateral subsegmental atelectasis. Vitaliy Krishnamurthy MD Abdomen/Pelvis CT 12/24/17 6745 Signed Impressions: Service Date/Time: Sunday, December 24, 2017 16:01 - CONCLUSION: 1. Evidence of prior colectomy with stoma in the right lower quadrant. Small bowel is diffusely dilated to a point just proximal to the stoma. Differential diagnosis includes ileus and distal obstruction. 2. Small amount of free fluid in the pelvis. Vitaliy Krishnamurthy MD Objective Remarks GENERAL: This is a well-nourished, well-developed -N[place]alese male patient in no acute distress, NG tube in place. SKIN: No rashes, ecchymoses or lesions. Cool and dry. HEAD: Atraumatic. Normocephalic. EYES: Pupils equal round and reactive. Extraocular motions intact. No scleral icterus. No injection or drainage. ENT: Nose without drainage. Airway patent. NECK: Trachea midline. No JVD or lymphadenopathy. Supple, nontender, no meningeal signs. CARDIOVASCULAR: Tachycardic rate and regular rhythm without murmurs, gallops, or rubs. RESPIRATORY: Clear to auscultation. Breath sounds equal bilaterally. No wheezes , rales, or rhonchi. Resting comfortably on RA. GASTROINTESTINAL: Abdomen soft, minimally tender in lower abdomen, nondistended. No hepato-splenomegaly, or palpable masses. No guarding. MUSCULOSKELETAL: Extremities without clubbing, cyanosis, or edema. No joint tenderness, effusion, or edema noted. No calf tenderness. NEUROLOGICAL: AOx3. Cranial nerves II through XII intact. Motor and sensory grossly within normal limits. Normal speech. (Sushma Montero MD, R3) A/P Assessment and Plan 57 year old male w/PMHx HTN, DM type 2 and colon cancer s/p colectomy and ileostomy 12/16/17 who presented with continuing abdominal pain following surgery with low volume ostomy output, bloating and CT suggestive of ileus vs obstruction. Dr Biggs, surgery, consulted. Discharge Planning Pending resolution of ileus, likely in the next 2-3 days. (Sushma Montero MD, R3) Attending Attestation Patient seen and examined. Case reviewed and discussed with the resident team. Agree with plan of care as discussed with me and documented in the resident note. appreciate help of colorectal surgery (Sheryl Mac MD) Problem List: (1) Ileus following gastrointestinal surgery ICD Codes: K91.30 - Postprocedural intestinal obstruction, unspecified as to partial versus complete Status: Resolved Plan: Pt with abdominal pain and distension following colectomy/ileostomy on ; CT abdomen/pelvis showing air-fluid levels in the small bowel and stomach -colorectal surgery consulted--appreciate recs -NG tube for decompression-- output decreasing but still substantial at 1050ml, will continue to monitor and clamp NG tube once output is minimal - Continue to replace fluid loss with IV fluids- D5 1/2 NS + KCl @ 150ml/hr -Zofran 4mg IV q6h PRN -Morphine 2mg IV q3h PRN pain 1-6 -Morphine 4mg IV q3h PRN pain 7-10 -Hold bowel regimen (2) Cancer of transverse colon ICD Codes: C18.4 - Malignant neoplasm of transverse colon Plan: Pt is s/p ileostomy/colectomy on 12/16/17 for colon cancer (3) Diabetes mellitus type 2 in nonobese ICD Codes: E11.9 - Type 2 diabetes mellitus without complications Status: Chronic Plan: Hold home Metformin BID -Low SSI, accuchecks ranging 204-259 in the past 24 hours - Will add Levemir 5 units HS and titrate -A1C pending (4) FEN/GI/PPx Status: Acute Plan: Fluids: D5 1/2 NS + KCl @ 150ml/hr Electrolytes: continue to monitor and replete PRN Nutrition: NPO GI: Protonix 40mg IV daily PPx: SCDs, heparin 5000 units Q8H (Sushma Montero MD, R3) Sushma Montero MD, R3 Dec 26, 2017 12:01 Sheryl Mac MD Jan 02, 2018 20:59
[2017-12-26] MEDS: D5-1/2 NS + KCL 20 MEQ INJ 1,000 ML IV SCH ×2 (12:47→20:02)
[2017-12-26] MEDS: HEPARIN SODIUM - SQ 10,000 UNITS/ML VIAL SQ SCH ×2 (12:47→21:34)
[2017-12-26 14:10] VITALS: O2SAT 98
[2017-12-26 16:00] VITALS: BP 145/82; PULSE 100; RESP 18; TEMP 98.5; O2SAT 97
[2017-12-26] MEDS: PANTOPRAZOLE SODIUM 40 MG VIAL IV PUSH SCH (16:22)
[2017-12-26 16:32] LABS: HEMOGLOBIN A1C 8.3 % (4.3-6.0)
--- NOTE | 2017-12-26 18:14 | HHI.PR ---
Subjective Remarks C/R Surg afebrile, VSS UO good NGT less good stoma output Objective - Vital Signs Date Time Temp Pulse Resp B/P (MAP) Pulse Ox O2 Delivery O2 Flow Rate FiO2 12/26/17 16:00 98.5 100 18 145/82 (103) 97 12/25/17 19:50 21 12/24/17 16:59 Room Air Result Diagram: 12/26/17 0545 12/26/17 0545 Objective Remarks PE alert Abd - softer, still, full, stoma pink A/P Assessment and Plan Imp: better hydration decr IVF OOB NGT to gravity Joaquín Biggs MD Dec 26, 2017 18:14
[2017-12-26 20:00] VITALS: BP 160/79; PULSE 84; RESP 22; TEMP 98.2; O2SAT 98
[2017-12-26] MEDS ORDERED: INSULIN DETEMIR 100 UNITS/ML VIAL SQ SCH ×2 (21:00)
[2017-12-27] VITALS: BP 129/75; PULSE 83; RESP 18; TEMP 98; O2SAT 96
[2017-12-27] MEDS: D5-1/2 NS + KCL 20 MEQ INJ 1,000 ML IV SCH (04:57)
[2017-12-27] MEDS: HEPARIN SODIUM - SQ 10,000 UNITS/ML VIAL SQ SCH ×3 (05:02→20:32)
[2017-12-27] MEDS: MORPHINE SULFATE 4 MG/ML INJ IV PUSH PRN ×4 (05:26→20:30)
[2017-12-27 08:00] VITALS: BP 133/78; PULSE 79; RESP 17; TEMP 97.5; O2SAT 97
[2017-12-27] MEDS: SODIUM CHLORIDE 0.9% FLUSH 10 ML FLUSH IV FLUSH SCH ×2 (08:30→20:40)
[2017-12-27] MEDS: INSULIN ASPART SUPPLEMENTAL SCALE SQ SCH ×4 (08:30→20:33)
[2017-12-27 09:40] LABS: BICARBONATE 26.3 MEQ/L (21.0-32.0); CALCIUM 8.1 MG/DL (8.5-10.1); CREATININE 0.63 MG/DL (0.60-1.30)
[2017-12-27] MEDS: INSULIN DETEMIR 100 UNITS/ML VIAL SQ SCH ×2 (10:42→20:37)
[2017-12-27 12:00] VITALS: BP 132/83; PULSE 90; RESP 18; TEMP 97.2; O2SAT 98
--- NOTE | 2017-12-27 12:21 | HHI.FPPN ---
Subjective Remarks Patient states he is feeling much better. Has been OOB and ambulating. Increased oral intake, has an appetite. Endorses no change in colostomy output, 0.675 L today, 0.400 L yesterday. Vitals have been stable. Seen by Dr. Biggs yesterday. NG tube D/C'd due to drainage <100 cc. Patient on clear liquid diet. Fasting glucose 191 this AM per nurse in room, 161 yesterday evening. (Wendi Helm MD R1) Objective Vitals Vital Signs Date Time Temp Pulse Resp B/P (MAP) Pulse Ox O2 Delivery O2 Flow Rate FiO2 12/27/17 08:00 97.5 79 17 133/78 (96) 97 12/27/17 06:27 20 12/27/17 00:00 98.0 83 18 129/75 (93) 96 12/26/17 20:00 98.2 84 22 160/79 (106) 98 12/26/17 16:00 98.5 100 18 145/82 (103) 97 12/26/17 14:10 98 I/O 12/26/17 12/26/17 12/26/17 12/27/17 12/27/17 12/27/17 07:00 15:00 23:00 07:00 15:00 23:00 Intake Total 1180 ml 900 ml 1550 ml Output Total 1050 ml 150 ml 2130 ml 1100 ml Balance 130 ml 750 ml -580 ml -1100 ml Intake Oral 180 ml 800 ml IV Total 1000 ml 900 ml 750 ml Output Urine Total 700 ml 1600 ml 1100 ml Stool Total 200 ml 150 ml 525 ml Gastric Drainage Total 150 ml 5 ml (Wendi Helm MD R1) Result Diagram: 12/26/17 0545 12/27/17 0746 Objective Remarks GENERAL: This is a pleasant -[place] male patient lying comfortably in bed. SKIN: Cool and dry. EYES: Pupils equal round and reactive. Extraocular motions intact. No scleral icterus. No injection or drainage. CARDIOVASCULAR: Regular rate and regular rhythm without murmurs, gallops, or rubs. RESPIRATORY: Clear to auscultation. Resting comfortably on RA. GASTROINTESTINAL: Abdomen soft, moderately distended, minimally tender in lower abdomen (patient endorses improvement). MUSCULOSKELETAL: Extremities without clubbing, cyanosis, or edema. NEUROLOGICAL: No focal deficits. (Wendi Helm MD R1) A/P Assessment and Plan 57 year old male w/PMHx HTN, DM type 2 and colon cancer s/p colectomy and ileostomy 12/16/17 who presented with continuing abdominal pain admitted for post- operative ileus . Dr Biggs, surgery, consulted. Sigmoidoscopy on 12/26 shows no areas of ischemia or anastamosis. Treated with NPO, NG tube placement (12/24- , drained 1.5 L on Day #1), IVF, SSI and levemir BID for blood glucose control (target range 100-180), morphine for pain. Patient has shown improvement in abdominal pain, clear fluid diet initiated on 12/26. Discharge Planning Pending resolution of ileus and surgery recs. Safe for home D/C per PT. (Wendi Helm MD R1) Attending Attestation Patient seen and examined. Case reviewed and discussed with the resident team. Agree with plan of care as discussed with me and documented in the resident note. improved overall (Sheryl Mac MD) Problem List: (1) Ileus following gastrointestinal surgery ICD Codes: K91.30 - Postprocedural intestinal obstruction, unspecified as to partial versus complete Status: Resolved Plan: Pt with abdominal pain and distension following colectomy/ileostomy on ; CT abdomen/pelvis showing air-fluid levels in the small bowel and stomach -colorectal surgery consulted--appreciate recs - D/C IVF and NG tube -Zofran 4mg IV q6h PRN -Morphine 2mg IV q3h PRN pain 1-6 -Morphine 4mg IV q3h PRN pain 7-10 -Hold bowel regimen (2) Cancer of transverse colon ICD Codes: C18.4 - Malignant neoplasm of transverse colon Plan: Pt is s/p ileostomy/colectomy on 12/16/17 for colon cancer (3) Diabetes mellitus type 2 in nonobese ICD Codes: E11.9 - Type 2 diabetes mellitus without complications Status: Chronic Plan: Hold home Metformin BID A1C 8.3 Target to maintain blood glucose 100-180 per endocrinology guidelines - Low SSI, accuchecks ranging 191-238 in the past 24 hours - Will add Levemir 8 units BID due to clear fluid diet (4) FEN/GI/PPx Status: Acute Plan: Fluids: PO Electrolytes: potassium supplemented this AM w/30 meq dose Nutrition: clear fluids GI: Protonix 40mg IV daily PPx: SCDs, heparin 5000 units Q8H (Wendi Helm MD R1) Wendi Helm MD R1 Dec 27, 2017 12:21 Sheryl Mac MD Jan 02, 2018 21:00
[2017-12-27 16:00] VITALS: BP 146/78; PULSE 79; RESP 16; TEMP 97.5; O2SAT 92
[2017-12-27] MEDS: PANTOPRAZOLE SODIUM 40 MG VIAL IV PUSH SCH (17:19)
[2017-12-27 20:00] VITALS: BP 148/82; PULSE 81; RESP 18; TEMP 98.1; O2SAT 96
--- NOTE | 2017-12-27 20:13 | HHI.PR ---
Subjective Remarks C/R Surg afebrile, VSS UO good NGT DC'd good stoma output Objective - Vital Signs Date Time Temp Pulse Resp B/P (MAP) Pulse Ox O2 Delivery O2 Flow Rate FiO2 12/27/17 16:00 97.5 79 16 146/78 (100) 92 12/25/17 19:50 21 12/24/17 16:59 Room Air Result Diagram: 12/26/17 0545 12/27/17 0746 Objective Remarks PE alert Abd - softer, still, full, stoma pink A/P Assessment and Plan Imp: better hydration decr IVF OOB adv diet Joaquín Biggs MD Dec 27, 2017 20:13
[2017-12-27] MEDS ORDERED: INSULIN DETEMIR 100 UNITS/ML VIAL SQ SCH (21:00)
[2017-12-28] VITALS: BP 143/86; PULSE 77; RESP 18; TEMP 97.6; O2SAT 97
[2017-12-28] MEDS ORDERED: POTASSIUM CHLORIDE 20 MEQ CONTROLLED RELEASE TAB PO ONE (06:45)
[2017-12-28 08:00] VITALS: BP 143/85; PULSE 87; RESP 17; TEMP 98; O2SAT 96
[2017-12-28 08:00] LABS: ALBUMIN 2.7 GM/DL (3.4-5.0); AST (GOT) 12 U/L (15-37); BICARBONATE 27.6 MEQ/L (21.0-32.0); BLOOD UREA NITROGEN 3 MG/DL (7-18); CALCIUM 8.6 MG/DL (8.5-10.1); CHLORIDE 100 MEQ/L (98-107); CREATININE 0.63 MG/DL (0.60-1.30); GLOMERULAR FILTRATION RATE 159 ML/MIN (>89); GLUCOSE,RANDOM 116 MG/DL (74-106); SODIUM (NA) 136 MEQ/L (136-145)
[2017-12-28] MEDS: INSULIN ASPART SUPPLEMENTAL SCALE SQ SCH ×4 (08:00→21:00)
[2017-12-28 08:03] LABS: ALKALINE PHOSPHATASE 68 U/L (45-117); ALT (GPT) 15 U/L (12-78); TOTAL BILIRUBIN ADULT 0.4 MG/DL (0.2-1.0); TOTAL PROTEIN 6.2 GM/DL (6.4-8.2)
[2017-12-28] MEDS: HEPARIN SODIUM - SQ 10,000 UNITS/ML VIAL SQ SCH ×2 (08:31→21:06)
[2017-12-28] MEDS: INSULIN DETEMIR 100 UNITS/ML VIAL SQ SCH ×2 (08:31→21:06)
[2017-12-28] MEDS: SODIUM CHLORIDE 0.9% FLUSH 10 ML FLUSH IV FLUSH SCH ×2 (08:31→21:00)
--- NOTE | 2017-12-28 09:25 | HHI.FPPN ---
Subjective Remarks Patient states he is doing well, improving appetite. Ambulating regularly, no acute complaints. (Wendi Helm MD R1) Objective Vitals Vital Signs Date Time Temp Pulse Resp B/P (MAP) Pulse Ox O2 Delivery O2 Flow Rate FiO2 12/28/17 08:00 98.0 87 17 143/85 (104) 96 12/28/17 00:00 97.6 77 18 143/86 (105) 97 12/27/17 23:09 20 12/27/17 20:00 98.1 81 18 148/82 (104) 96 12/27/17 16:00 97.5 79 16 146/78 (100) 92 12/27/17 12:00 97.2 90 18 132/83 (99) 98 I/O 12/27/17 12/27/17 12/27/17 12/28/17 12/28/17 12/28/17 07:00 15:00 23:00 07:00 15:00 23:00 Intake Total 480 ml 660 ml 360 ml Output Total 1100 ml 1500 ml 1350 ml Balance -1100 ml 480 ml -840 ml -990 ml Intake Oral 660 ml 360 ml IV Total 480 ml Output Urine Total 1100 ml 1000 ml 950 ml Stool Total 500 ml 400 ml (Wendi Helm MD R1) Result Diagram: 12/26/17 0545 12/28/17 0534 Objective Remarks GENERAL: This is a pleasant -[place] male patient lying comfortably in bed. SKIN: Cool and dry. EYES: Pupils equal round and reactive. Extraocular motions intact. No scleral icterus. No injection or drainage. CARDIOVASCULAR: Regular rate and regular rhythm without murmurs, gallops, or rubs. RESPIRATORY: Clear to auscultation. Resting comfortably on RA. GASTROINTESTINAL: Abdomen soft, moderately distended, minimally tender in lower abdomen (patient endorses improvement). Ostomy bag in the right upper abdomen w/ dark, green liquid contents. MUSCULOSKELETAL: Extremities without clubbing, cyanosis, or edema. NEUROLOGICAL: No focal deficits. (Wendi Helm MD R1) A/P Assessment and Plan 57 year old male w/PMHx HTN, DM type 2 and colon cancer s/p colectomy and ileostomy 12/16/17 who presented with continuing abdominal pain admitted for post- operative ileus . Dr Biggs, surgery, consulted. Sigmoidoscopy on 12/26 shows no areas of ischemia or anastamosis. Treated with NPO, NG tube placement (12/24- , drained 1.5 L on Day #1), IVF, SSI and levemir BID for blood glucose control (target range 100-180), morphine for pain. Patient has shown improvement in abdominal pain, clear fluid diet initiated on 12/26. Discharge Planning Pending resolution of ileus and surgery recs. Approved for Home with Home Health care per CM. (Wendi Helm MD R1) Attending Attestation Patient seen and examined. Case reviewed and discussed with the resident team. Agree with plan of care as discussed with me and documented in the resident note. should be able to go home soon (Sheryl Mac MD) Problem List: (1) Ileus following gastrointestinal surgery ICD Codes: K91.30 - Postprocedural intestinal obstruction, unspecified as to partial versus complete Status: Resolved Plan: Pt with abdominal pain and distension following colectomy/ileostomy on ; CT abdomen/pelvis showing air-fluid levels in the small bowel and stomach -colorectal surgery consulted--appreciate recs -Zofran 4mg IV q6h PRN - reglan IV, IV protonix -Morphine 2mg IV q3h PRN pain 1-6 -Morphine 4mg IV q3h PRN pain 7-10 -Hold bowel regimen -Regular diet (2) Cancer of transverse colon ICD Codes: C18.4 - Malignant neoplasm of transverse colon Plan: Pt is s/p ileostomy/colectomy on 12/16/17 for colon cancer (3) Diabetes mellitus type 2 in nonobese ICD Codes: E11.9 - Type 2 diabetes mellitus without complications Status: Chronic Plan: Hold home Metformin BID A1C 8.3 Target to maintain blood glucose 100-180 per endocrinology guidelines - Low dose SSI - add Levemir 8 units BID (4) FEN/GI/PPx Status: Acute Plan: Fluids: PO Electrolytes: as needed Nutrition: clear fluids GI: Protonix 40mg IV daily PPx: SCDs, heparin 5000 units Q8H (Wendi Helm MD R1) Wendi Helm MD R1 Dec 28, 2017 09:25 Sheryl Mac MD Jan 02, 2018 21:00
[2017-12-28 12:00] VITALS: BP 150/74; PULSE 94; RESP 18; TEMP 96.4; O2SAT 99
[2017-12-28] MEDS: MORPHINE SULFATE 4 MG/ML INJ IV PUSH PRN (14:30)
[2017-12-28 16:00] VITALS: BP 143/99; PULSE 100; RESP 17; TEMP 96.6; O2SAT 99
--- NOTE | 2017-12-28 16:04 | HHI.PR ---
Subjective Remarks C/R Surg afebrile, VSS UO good Emesis X1 good stoma output Objective - Vital Signs Date Time Temp Pulse Resp B/P (MAP) Pulse Ox O2 Delivery O2 Flow Rate FiO2 12/28/17 12:00 96.4 94 18 150/74 (99) 99 12/25/17 19:50 21 12/24/17 16:59 Room Air Result Diagram: 12/26/17 0545 12/28/17 0534 Objective Remarks PE alert Abd - softer, still, full, stoma pink, non-tender A/P Assessment and Plan Imp: better hydration decr IVF OOB adv diet, Joaquín Simpson MD Dec 28, 2017 16:04
[2017-12-28] MEDS: PANTOPRAZOLE SOD 40 MG DELAYED RELEASE TAB PO SCH (16:42)
[2017-12-28] MEDS: METOCLOPRAMIDE HCL 10 MG/2 ML VIAL IV PUSH SCH ×2 (16:42→21:07)
[2017-12-28] MEDS: PANTOPRAZOLE SODIUM 40 MG VIAL IV PUSH SCH (16:43)
[2017-12-28 20:00] VITALS: BP 151/84; PULSE 97; RESP 18; TEMP 98.6; O2SAT 98
[2017-12-29] VITALS: BP 143/80; PULSE 99; RESP 18; TEMP 98.7; O2SAT 96
[2017-12-29] MEDS: METOCLOPRAMIDE HCL 10 MG/2 ML VIAL IV PUSH SCH (05:36)
[2017-12-29 07:44] LABS: BICARBONATE 27.5 MEQ/L (21.0-32.0); CREATININE 0.91 MG/DL (0.60-1.30)
[2017-12-29 08:00] VITALS: BP 121/79; PULSE 91; RESP 17; TEMP 97.9; O2SAT 96
[2017-12-29] MEDS ORDERED: METO10TA PO (08:01)
[2017-12-29] MEDS: HEPARIN SODIUM - SQ 10,000 UNITS/ML VIAL SQ SCH (08:13)
[2017-12-29] MEDS: PANTOPRAZOLE SOD 40 MG DELAYED RELEASE TAB PO SCH (08:13)
[2017-12-29] MEDS: INSULIN DETEMIR 100 UNITS/ML VIAL SQ SCH (08:14)
[2017-12-29] MEDS: INSULIN ASPART SUPPLEMENTAL SCALE SQ SCH ×3 (08:14→16:57)
[2017-12-29] MEDS: SODIUM CHLORIDE 0.9% FLUSH 10 ML FLUSH IV FLUSH SCH (08:14)
[2017-12-29] MEDS: METOCLOPRAMIDE HCL 10 MG TAB PO SCH ×3 (08:18→16:56)
--- NOTE | 2017-12-29 11:44 | HHI.PR ---
Subjective Remarks C/R Surg afebrile, VSS UO good good stoma output No vomiting Objective - Vital Signs Date Time Temp Pulse Resp B/P (MAP) Pulse Ox O2 Delivery O2 Flow Rate FiO2 12/29/17 08:00 97.9 91 17 121/79 (93) 96 12/25/17 19:50 21 Result Diagram: 12/26/17 0545 12/29/17 0702 Objective Remarks PE alert Abd - softer, still, full, stoma pink, non-tender A/P Assessment and Plan Imp: better hydration decr IVF OOB adv diet, reglan dc plans Joaquín Biggs MD Dec 29, 2017 11:44
[2017-12-29 12:00] VITALS: BP 136/87; PULSE 91; RESP 18; TEMP 97.3; O2SAT 97
--- NOTE | 2017-12-29 12:10 | HHI.FPPN ---
Subjective Remarks No acute issues overnight. Vitals are stable, patient remains afebrile. He continues to have tachycardia up to 100. He is tolerating PO intake better than yesterday with the Reglan. He continues to have some abdominal cramping but denies any fever, chills, vomiting, or malaise. (Sushma Montero MD, R3) Objective Vitals Vital Signs Date Time Temp Pulse Resp B/P (MAP) Pulse Ox O2 Delivery O2 Flow Rate FiO2 12/29/17 08:00 97.9 91 17 121/79 (93) 96 12/29/17 00:00 98.7 99 18 143/80 (101) 96 12/28/17 22:00 20 12/28/17 20:00 98.6 97 18 151/84 (106) 98 12/28/17 16:00 96.6 100 17 143/99 (114) 99 I/O 12/28/17 12/28/17 12/28/17 12/29/17 12/29/17 12/29/17 06:59 14:59 22:59 06:59 14:59 22:59 Intake Total 360 ml 960 ml 240 ml Output Total 1350 ml 1800 ml 650 ml 350 ml Balance -990 ml -840 ml -410 ml -350 ml Intake Oral 360 ml 960 ml 240 ml Output Urine Total 950 ml 800 ml Stool Total 400 ml 1000 ml 650 ml 350 ml # Voids 3 (Sushma Montero MD, R3) Result Diagram: 12/26/17 0545 12/29/17 0702 Imaging Last Impressions Chest X-Ray 12/24/17 0509 Signed Impressions: Service Date/Time: Sunday, December 24, 2017 14:06 - CONCLUSION: No significant change. Mild bilateral subsegmental atelectasis. Vitaliy Krishnamurthy MD Abdomen/Pelvis CT 12/24/17 5082 Signed Impressions: Service Date/Time: Sunday, December 24, 2017 16:01 - CONCLUSION: 1. Evidence of prior colectomy with stoma in the right lower quadrant. Small bowel is diffusely dilated to a point just proximal to the stoma. Differential diagnosis includes ileus and distal obstruction. 2. Small amount of free fluid in the pelvis. Vitaliy Krishnamurthy MD Objective Remarks GENERAL: This is a pleasant -Citizen Of [place] male patient lying comfortably in bed. SKIN: Cool and dry. EYES: Pupils equal round and reactive. Extraocular motions intact. No scleral icterus. No injection or drainage. CARDIOVASCULAR: Regular rate and regular rhythm without murmurs, gallops, or rubs. RESPIRATORY: Clear to auscultation. Resting comfortably on RA. GASTROINTESTINAL: Abdomen soft, mildly distended, non-tender. Ostomy bag in the right upper abdomen w/dark, green liquid contents. MUSCULOSKELETAL: Extremities without clubbing, cyanosis, or edema. NEUROLOGICAL: No focal deficits. (Sushma Montero MD, R3) A/P Assessment and Plan 57 year old male w/PMHx HTN, DM type 2 and colon cancer s/p colectomy and ileostomy 12/16/17 who presented with continuing abdominal pain admitted for post- operative ileus . Dr Biggs, surgery, consulted. Sigmoidoscopy on 12/26 showed no areas of ischemia and normal postoperative anastomosis with good bowel viability. Patient continues to improve. Discharge Planning Anticipate discharge home with home health today. (Sushma Montero MD, R3) Attending Attestation Patient seen and examined. Case reviewed and discussed with the resident team. Agree with plan of care as discussed with me and documented in the resident note. needs to be strong and healthy as he goes next for chemo (Sheryl Mac MD) Problem List: (1) Ileus following gastrointestinal surgery ICD Codes: K91.30 - Postprocedural intestinal obstruction, unspecified as to partial versus complete Status: Resolved Plan: Pt with abdominal pain and distension following colectomy/ileostomy on ; CT abdomen/pelvis showed air-fluid levels in the small bowel and stomach -colorectal surgery consulted--appreciate recs -Zofran 4mg IV q6h PRN nausea/vomiting - Reglan 10mg PO ACHS - Protonix 40mg PO daily -Morphine 2mg IV q3h PRN pain 1-6 -Morphine 4mg IV q3h PRN pain 7-10 -Regular diet (2) Cancer of transverse colon ICD Codes: C18.4 - Malignant neoplasm of transverse colon Plan: Pt is s/p ileostomy/colectomy on 12/16/17 for colon cancer (3) Diabetes mellitus type 2 in nonobese ICD Codes: E11.9 - Type 2 diabetes mellitus without complications Status: Chronic Plan: Hold home Metformin BID A1C 8.3 Target to maintain blood glucose 100-180 per endocrinology guidelines - Low dose SSI - Levemir 8 units BID (4) FEN/GI/PPx Status: Acute Plan: Fluids: PO Electrolytes: as needed Nutrition: regular diet PPx: SCDs, heparin 5000 units Q12H (Sushma Montero MD, R3) Sushma Montero MD, R3 Dec 29, 2017 12:10 Sheryl Mac MD Jan 02, 2018 21:01
--- NOTE | 2017-12-29 12:11 | HHI.DCPOC ---
Discharge Care Plan Diagnosis: (1) Ileus following gastrointestinal surgery Goals to Promote Your Health * To prevent worsening of your condition and complications * To maintain your health at the optimal level Directions to Meet Your Goals Take your medications as prescribed Follow your dietary instruction Follow activity as directed Keep your appointments as scheduled Take your immunizations and boosters as scheduled If your symptoms worsen call your PCP, if no PCP go to Urgent Care Center or Emergency Room Smoking is Dangerous to Your Health. Avoid second hand smoke Call the 24-hour hour crisis hotline for domestic abuse at Sushma Montero MD, R3 Dec 29, 2017 12:11
--- NOTE | 2017-12-29 12:12 | HHI.FF ---
Face to Face Verification Diagnosis: (1) Ileus following gastrointestinal surgery (2) Diabetes mellitus type 2 in nonobese Physical Therapy Order: Evaluate and Treat, Improve ambulation, Strength and gait training Home Health Nursing Order: Medical education Diabetic education Medication education-adverse effect I have seen patient Rian Curran on 12/29/17. My clinical findings support the need for the requested home health care services because: Ltd mobility - disease progression Deconditioned w/ increased weakness I certify that my clinical findings support that this patient is homebound because: Unsteady gait/balance Sushma Montero MD, R3 Dec 29, 2017 12:12
[2017-12-29] MEDS ORDERED: LEVEMIR SQ (12:14)
[2017-12-29] MEDS ORDERED: METF1000 PO (12:14)
--- NOTE | 2017-12-29 12:27 | HHI.DS ---
Discharge Summary Admission Date Dec 24, 2017 at 17:13 Discharge Date: Dec 29, 2017 Admitting Diagnosis abdominal pain, possible obstruction (1) Ileus following gastrointestinal surgery Plan: Pt with abdominal pain and distension following colectomy/ileostomy on ; CT abdomen/pelvis showed air-fluid levels in the small bowel and stomach -colorectal surgery consulted--appreciate recs -Zofran 4mg IV q6h PRN nausea/vomiting - Reglan 10mg PO ACHS - Protonix 40mg PO daily -Morphine 2mg IV q3h PRN pain 1-6 -Morphine 4mg IV q3h PRN pain 7-10 -Regular diet ICD Codes: K91.30 - Postprocedural intestinal obstruction, unspecified as to partial versus complete Status: Resolved (2) Cancer of transverse colon Plan: Pt is s/p ileostomy/colectomy on 12/16/17 for colon cancer ICD Codes: C18.4 - Malignant neoplasm of transverse colon (3) Diabetes mellitus type 2 in nonobese Plan: Hold home Metformin BID A1C 8.3 Target to maintain blood glucose 100-180 per endocrinology guidelines - Low dose SSI - Levemir 8 units BID ICD Codes: E11.9 - Type 2 diabetes mellitus without complications Status: Chronic (4) FEN/GI/PPx Plan: Fluids: PO Electrolytes: as needed Nutrition: regular diet PPx: SCDs, heparin 5000 units Q12H Status: Acute Consultants Colorectal surgery, Dr. Biggs. Procedures Flexible Sigmoidoscopy 12/25/17 Brief History On admission: Mr Curran is a 57YO male w/PMHx HTN, DM type 2 and colon cancer s/p colectomy and ileostomy on 12/16/17 who presented with abdominal pain that had been constant since the colectomy on December 16. Pain is constant and 9-10/10 on pain scale all the time; it interrupts sleep; pain quality involves the back and feeling of pain referred across the entire abdomen. Pt feels like a hard boiled egg with bloating and low ostomy output, about 1/4 bag per day, that is mostly fluid. Pt feels too bloated to get the required fluid intake per day and subsequently feels thirsty all the time. Reports one bout of emesis on Tue that was large volume non-bloody and non-bilious, but had contents of lots of food and liquid items he had taken recently consumed. He also felt nauseous. Denies CP, DVT pain. Other findings as per ROS. He had an NG tube placed in the ED and had a quick 1200 ccs out the tube. He instantly felt less distended and his abdominal pain is vastly improved this am. he has very little colostomy output today and has bilious fluid draining into his NG. CBC/BMP: 12/26/17 0545 12/29/17 0702 Significant Findings Laboratory Tests Test 12/26/17 19:00 12/27/17 07:46 12/27/17 09:00 12/28/17 05:34 Lactic Acid Level 2.1 mmol/L (0.4-2.0) Blood Urea Nitrogen 2 MG/DL (7-18) 3 MG/DL (7-18) Random Glucose 191 MG/DL (74-106) 116 MG/DL (74-106) Calcium Level 8.1 MG/DL (8.5-10.1) Sodium Level 134 MEQ/L (136-145) Potassium Level 3.2 MEQ/L (3.5-5.1) 3.4 MEQ/L (3.5-5.1) Total Protein 6.2 GM/DL (6.4-8.2) Albumin 2.7 GM/DL (3.4-5.0) Aspartate Amino Transf (AST/SGOT) 12 U/L (15-37) Test 12/29/17 07:02 Blood Urea Nitrogen 4 MG/DL (7-18) Random Glucose 153 MG/DL (74-106) Sodium Level 135 MEQ/L (136-145) Imaging Last Impressions Chest X-Ray 12/24/17 2751 Signed Impressions: Service Date/Time: Sunday, December 24, 2017 14:06 - CONCLUSION: No significant change. Mild bilateral subsegmental atelectasis. Vitaliy Krishnamurthy MD Abdomen/Pelvis CT 12/24/17 [id number] Signed Impressions: Service Date/Time: Sunday, December 24, 2017 16:01 - CONCLUSION: 1. Evidence of prior colectomy with stoma in the right lower quadrant. Small bowel is diffusely dilated to a point just proximal to the stoma. Differential diagnosis includes ileus and distal obstruction. 2. Small amount of free fluid in the pelvis. Vitaliy Krishnamurthy MD PE at Discharge GENERAL: This is a pleasant -[place] male patient lying comfortably in bed. SKIN: Cool and dry. EYES: Pupils equal round and reactive. Extraocular motions intact. No scleral icterus. No injection or drainage. CARDIOVASCULAR: Regular rate and regular rhythm without murmurs, gallops, or rubs. RESPIRATORY: Clear to auscultation. Resting comfortably on RA. GASTROINTESTINAL: Abdomen soft, mildly distended, non-tender. Ostomy bag in the right upper abdomen w/dark, green liquid contents. MUSCULOSKELETAL: Extremities without clubbing, cyanosis, or edema. NEUROLOGICAL: No focal deficits. Hospital Course Patient is a 57 year old male w/ PMHx HTN, DM type 2 and colon cancer s/p colectomy and ileostomy 12/16/17 who presented with continuing abdominal pain admitted for post-operative ileus. Imaging as above. Colorectal surgery, Dr. Biggs was consulted, and performed a flexible sigmoidoscopy on 12/25 that showed no areas of ischemia and normal postoperative anastomosis with good bowel viability. Patient was treated by being kept NPO and with an NG tube from 12/24-12/27 that drained about 1L of fluid total. The NG tube was removed once the gastric drainage subsided and his diet was then advanced as tolerated. Reglan was added to assist with nausea and cramping associated with PO intake. In terms of DM type 2, he was started on Levemir 8units SQ BID for better glucose control and will be discharged home with Levemir and Metformin 1000mg PO BID. He was also hypokalemic during hospitalization, requiring potassium supplementation which resolved on discharge. He will obtain a BMP in 1 week for further monitoring of electrolytes. He will follow-up with his PCP and Dr. Biggs in 1 week. Pt Condition on Discharge: Stable Discharge Disposition: Discharge Home Discharge Instructions DIET: Follow Instructions for: Diabetic Diet Activities you can perform: Regular-No Restrictions Follow up Referrals: Appointment for Follow Up - 1 Week with Nan Nelson MD PCP Follow-up New Orders: BASIC METABOLIC PROF - 1 Week New Medications: Metformin (Metformin) 1,000 Mg Tab 1000 MG PO BIDPC for Blood Sugar Management, #60 TAB 1 Refill Insulin Detemir Inj (Levemir Inj) 1,000 unit/ 10 ML Vial 8 UNITS SQ Q12HR, #1 VIAL 1 Refill Do not mix with any other Insulin. Metoclopramide (Metoclopramide) 10 Mg Tab 10 MG PO ACHS for NA for 7 Days, #21 TAB 1 Refill Continued Medications: Hydrocodone/Acetaminophen (Hydrocodone-Acetamin 5-325 mg) 5 Mg-325 Mg Tablet 1-2 TAB PO Q6H PRN for PAIN SCALE 1 TO 10 for 14 Days, #40 TAB Ondansetron (Zofran) 4 Mg Tab 4 MG PO Q8HR PRN for NAUSEA OR VOMITING, TAB 0 Refills Discontinued Medications: Metformin (Metformin) 500 Mg Tab 500 MG PO BIDPC for Blood Sugar Management, #60 TAB 0 Refills Sushma Montero MD, R3 Dec 29, 2017 12:26
[2017-12-29 16:00] VITALS: BP 125/73; PULSE 88; RESP 17; TEMP 98.7; O2SAT 92
== END 2017-12-29 17:30 | disposition home or self-care (01) | DRG 394 ==
LOC: NEPC 13:11 → NEDA 17:13 → N07A 19:01
PROVIDERS: ADMIT Family Medicine; ATTEND Family Medicine
PROC: 0D9670Z Drainage of Stomach with Drainage Device, Via Natural or Artificial Opening (ICD-10-PCS; 2017-12-24)
PROC: 0DJD8ZZ Inspection of Lower Intestinal Tract, Via Natural or Artificial Opening Endoscopic (ICD-10-PCS; principal; 2017-12-25 10:40)
DX: K91.89 Other postprocedural complications and disorders of digestive system (principal); K56.7 Ileus, unspecified; C18.4 Malignant neoplasm of transverse colon; C20 Malignant neoplasm of rectum; E87.1 Hypo-osmolality and hyponatremia; I10 Essential (primary) hypertension; K21.9 Gastro-esophageal reflux disease without esophagitis; R55 Syncope and collapse; E87.6 Hypokalemia; E11.9 Type 2 diabetes mellitus without complications; M54.5 Low back pain; R00.0 Tachycardia, unspecified; Z93.2 Ileostomy status; Z79.84 Long term (current) use of oral hypoglycemic drugs; Z93.3 Colostomy status; Z90.49 Acquired absence of other specified parts of digestive tract
CPT/HCPCS: 71045; 74177; 80048; 80053; 81001; 82550; 82948; 83036; 83605; 83690; 84484; 85025; 85027; 85610; 85730; 86850; 86900; 86901; 86920; 93005; 96361; 96374; 96375; 96376; C9113; J1644; J1815; J2270; J2405; J2765; J3480; J7030; Q9967

== ENCOUNTER 2018-10-06 11:08 | Inpatient (IN) ==
[2018-10-06] MEDS ORDERED: Chlorhexidine Gluconate 2% 1 Pack (2 Cloths) TOPICAL ONE (11:32)
[2018-10-06] MEDS ORDERED: Metoprolol Tartrate 25 MG Tablet PO ONE (11:32)
[2018-10-06] MEDS ORDERED: Dextrose 5%/NaCl 0.9% Inj 1,000 ML IV.SIG SCH (11:45)
[2018-10-06] MEDS ORDERED: Sodium Chlor 0.9% Inj 500 ML IV.SIG SCH (12:00)
[2018-10-06] MEDS ORDERED: ceFAZolin 2 GM Premix Inj 2 GM/50 ML PIGGYBACK IV.SIG SCH (12:00)
[2018-10-06] MEDS ORDERED: Bupivacaine/Epinephrine 0.5% Inj 50 ML Vial ONE (13:34)
[2018-10-06] MEDS ORDERED: Lidocaine 0.5%/Epinephrine 1:200,000 Inj 50 ML Vial ONE (13:57)
[2018-10-06] MEDS ORDERED: ceFAZolin 1 GM Premix Inj 2 GM/100 ML PIGGYBACK IV.SIG ONE (14:12)
[2018-10-06] MEDS ORDERED: Sugammadex Inj 200 MG/2 ML Vial IV.PUSH ONE (15:25)
[2018-10-06] MEDS ORDERED: Potassium Chlor 20 mEq Premix 20 MEQ/100 ML PIGGYBACK IV.SIG PRN ×2 (16:53→17:00)
[2018-10-06] MEDS ORDERED: Naloxone Inj 0.4 MG/ML Vial IV.PUSH PRN (16:55)
[2018-10-06] MEDS ORDERED: Morphine Inj 30 MG/30 ML PCA.VIAL PCA ONE (17:13)
[2018-10-06] MEDS ORDERED: fentaNYL Citrate Inj 100 MCG/2 ML Ampul ONE ×2 (17:15→17:16)
--- NOTE | 2018-10-06 17:15 | MP ---
cc: Nan Nelson MD DATE OF OPERATION: 10/06/2018 PREOPERATIVE DIAGNOSIS: History of rectal cancer and colon cancer. POSTOPERATIVE DIAGNOSIS: History of rectal cancer and colon cancer. PROCEDURE PERFORMED: Colon resection with reanastomosis of ileostomy. STATISTICS PROFESSOR: Rakesh. ANESTHESIA: General per ET tube. ESTIMATED BLOOD LOSS: Less than 50 mL. INDICATIONS FOR PROCEDURE: The patient is a 58-year-old male who is status post extended left colectomy/low anterior resection for 2 separate colon cancers. OPERATIVE FINDINGS: Ileostomy. OPERATIVE COURSE: The patient was brought to the operating room, placed in supine position. After induction of general anesthesia, the stoma was sutured closed. The skin of the anterior abdominal wall was then prepped and draped in the usual sterile fashion. An incision was made circumferentially around the stoma using electrocautery. Dissection was carried down to the fascia of the anterior abdominal wall. Once the bowel was cleared of the fascia circumferentially, it was brought up and out through the ileostomy incision. A site was then chosen for division of the bowel just proximal and distal to the ileostomy. The mesentery was opened and a blue load of the SPENCER stapler was placed across the bowel at this level. This was closed, fired, and removed. The intervening mesentery was serially divided and ligated using 0 Vicryl ties. The antimesenteric corners of the staple line were then removed, one limb of the gastrointestinal stapler is placed on each limb of the bowel. This was closed along the antimesenteric border, fired and removed, thus creating an enteroenterostomy. The resulting enterotomy was closed transversely using the TX60 stapling device. The anastomosis was palpated and found to be widely patent. A simple stay suture was placed at the distal end of the anastomosis using 3-0 Vicryl. The anastomosis was then gently prolapsed back into the peritoneal cavity. The posterior fascia at the abdominal wall was closed in a running fashion using #1 PDS and the anterior fascia was closed in a running fashion using #1 PDS. The wound was copiously irrigated with warm normal saline and the skin was closed in a running subcuticular fashion using 3-0 Vicryl. Steri-Strips and sterile dressings were then applied. All sponge, needle and instrument counts were correct. The patient was returned to the Postanesthesia Care Unit in stable condition. MD JAKOB Bruce/jd , 05:02 PM , 05:07 PM NANCY
[2018-10-06] MEDS: Dextrose 5%/NaCl 0.9% Inj 1,000 ML IV.CONT SCH (17:28)
[2018-10-06] MEDS: Morphine Inj 30 MG/30 ML PCA.VIAL PCA PRN (17:29)
[2018-10-06 17:45] LABS: Baso % (Auto) 0.3 % (0.0-2.0); Eos # (Auto) 0.1 th/mm3 (0.0-0.4); Eos % (Auto) 1.4 % (0.0-4.0); Hematocrit 36.3 % (39.0-51.0); Hemoglobin 12.7 gm/dL (13.0-17.0); Lymph # (Auto) 3.3 th/mm3 (1.0-4.8); Lymph % (Auto) 31.5 % (9.0-44.0); Mean Corpuscular Hemoglobin 29.5 pg (27.0-34.0); Mean Corpuscular Volume 84.5 fL (80.0-100.0); Mean Platelet Volume 8.1 fL (7.0-11.0); Mono # (Auto) 0.4 th/mm3 (0.0-0.9); Mono % (Auto) 3.7 % (0.0-8.0); Neut # (Auto) 6.6 th/mm3 (1.8-7.7); Neut % (Auto) 63.1 % (16.0-70.0); Platelet Count 158 th/mm3 (150-450); Red Blood Count 4.29 mil/mm3 (4.50-5.90); Red Cell Distribution Width 14.7 % (11.6-17.2); White Blood Count 10.4 th/mm3 (4.0-11.0)
[2018-10-06 17:59] LABS: Anion Gap 9 meq/L (5-15); Blood Urea Nitrogen 9 mg/dL (7-18); Calcium 8.5 mg/dL (8.5-10.1); Carbon Dioxide 24.5 meq/L (21.0-32.0); Chloride 107 meq/L (98-107); Glomerular Filtration Rate Greater Than 89 mL/min (>89); Glucose,Random 168 mg/dL (74-106); Potassium 3.3 meq/L (3.5-5.1); Sodium 140 meq/L (136-145)
[2018-10-06] MEDS: Famotidine PF Inj 20 MG/2 ML Vial IV.PUSH SCH (20:52)
[2018-10-06] MEDS: Heparin - SQ 10,000 UNITS/ML Vial SQ SCH (20:53)
[2018-10-07] MEDS: Dextrose 5%/NaCl 0.9% Inj 1,000 ML IV.CONT SCH ×4 (03:36→19:09)
[2018-10-07] MEDS: ceFAZolin 1 GM Premix Inj 1 GM/50 ML PIGGYBACK IV.SIG SCH ×3 (03:36→15:19)
[2018-10-07 06:33] LABS: Baso % (Auto) 0.1 % (0.0-2.0); Hematocrit 36.3 % (39.0-51.0); Hemoglobin 12.6 gm/dL (13.0-17.0); Lymph % (Auto) 11.4 % (9.0-44.0); Mean Corpuscular HGB Conc 34.6 % (32.0-36.0); Mean Corpuscular Hemoglobin 29.1 pg (27.0-34.0); Mean Corpuscular Volume 83.9 fL (80.0-100.0); Mean Platelet Volume 8.5 fL (7.0-11.0); Mono # (Auto) 0.3 th/mm3 (0.0-0.9); Mono % (Auto) 3.5 % (0.0-8.0); Neut # (Auto) 7.6 th/mm3 (1.8-7.7); Platelet Count 179 th/mm3 (150-450); Red Blood Count 4.33 mil/mm3 (4.50-5.90); Red Cell Distribution Width 14.4 % (11.6-17.2); White Blood Count 8.9 th/mm3 (4.0-11.0)
[2018-10-07 06:59] LABS: Anion Gap 8 meq/L (5-15); Blood Urea Nitrogen 9 mg/dL (7-18); Calcium 8.8 mg/dL (8.5-10.1); Chloride 105 meq/L (98-107); Glomerular Filtration Rate Greater Than 89 mL/min (>89); Glucose,Random 195 mg/dL (74-106); Potassium 4.2 meq/L (3.5-5.1); Sodium 139 meq/L (136-145)
[2018-10-07] MEDS: Heparin - SQ 10,000 UNITS/ML Vial SQ SCH ×2 (08:50→20:09)
[2018-10-07] MEDS: Famotidine PF Inj 20 MG/2 ML Vial IV.PUSH SCH ×2 (08:50→20:17)
--- NOTE | 2018-10-07 11:30 | P.PNCS ---
Subjective Colorectal Surgery Post Op Day #: 1 Interval history: POD #1 s/p ileostomy reversal Comfortable Objective Result Diagrams: 10/07/18 05:05 10/07/18 05:05 Objective Remarks: ABdomen soft, nondistended, tender Assessment and Plan - Plan to OR today for hernia repair Home tomorrow
[2018-10-07] MEDS: Morphine Inj 30 MG/30 ML PCA.VIAL PCA PRN (15:53)
[2018-10-07] MEDS ORDERED: Bupivacaine PF 0.5% Inj 10 ML Vial ONE (18:12)
[2018-10-07] MEDS ORDERED: Lidocaine PF 2% Inj 10 ML Ampul ONE (18:13)
[2018-10-07] MEDS ORDERED: fentaNYL Citrate Inj 100 MCG/2 ML Ampul ONE (18:42)
--- NOTE | 2018-10-07 18:48 | MP ---
cc: Nan Nelson MD DATE OF OPERATION: 10/07/2018 PREOPERATIVE DIAGNOSIS: Ventral hernia. POSTOPERATIVE DIAGNOSIS: Ventral hernia. PROCEDURE PERFORMED: Ventral hernia repair with mesh. SURGEON: Nan Nelson MD ANESTHESIA: General per ET tube. ESTIMATED BLOOD LOSS: Less than 10 mL OPERATIVE INDICATIONS: The patient is a 58-year-old male who is about 8-9 months out from a resection for combined colon and rectal cancer. OPERATIVE COURSE: The patient was brought to the operating room, placed in the supine position. After induction of general anesthesia, the skin of the anterior abdominal wall was prepped and draped in the usual sterile fashion. The previous vertical midline incision, the hernia was noted to be right in the periumbilical area, so the upper part of this was opened for a distance of about 10-12 cm. Using electrocautery, dissection was carried down to the fascia of the anterior abdominal wall. The hernia sac was opened widely, and the hernia measured possibly 4 cm in diameter. The hernia sac was then removed using electrocautery. The edges of the fascia were cleared circumferentially. The fascia was then closed in a running fashion using #1 PDS. The piece of Marlex mesh was then brought onto the field and placed over the hernia repair and sutured in place circumferentially using 2-0 Prolene. The wound was copiously irrigated with warm normal saline. The subcutaneous tissue was reapproximated in interrupted fashion using 3-0 Vicryl, and the skin was closed in a running subcuticular fashion using 3-0 Vicryl. Steri-Strips and sterile dressing were then applied as was an abdominal binder. All sponge, needle, and instrument counts were correct, and the patient was returned to the Postanesthesia Care Unit in stable condition. Nan Nelson MD KW/rm , 06:27 PM , 06:31 PM
[2018-10-07] MEDS ORDERED: *morphine SULFATE 4 MG/ML PERIprocedure ONLY ONE (19:04)
[2018-10-08] MEDS: Dextrose 5%/NaCl 0.9% Inj 1,000 ML IV.CONT SCH ×2 (03:31→11:22)
[2018-10-08] MEDS: Morphine Inj 30 MG/30 ML PCA.VIAL PCA PRN (06:13)
[2018-10-08 07:28] LABS: Baso % (Auto) 0.3 % (0.0-2.0); Eos # (Auto) 0.1 th/mm3 (0.0-0.4); Eos % (Auto) 1.5 % (0.0-4.0); Hematocrit 35.5 % (39.0-51.0); Hemoglobin 12.3 gm/dL (13.0-17.0); Lymph # (Auto) 1.9 th/mm3 (1.0-4.8); Lymph % (Auto) 29.4 % (9.0-44.0); Mean Corpuscular HGB Conc 34.6 % (32.0-36.0); Mean Corpuscular Hemoglobin 28.7 pg (27.0-34.0); Mean Corpuscular Volume 82.8 fL (80.0-100.0); Mean Platelet Volume 8.3 fL (7.0-11.0); Mono # (Auto) 0.4 th/mm3 (0.0-0.9); Mono % (Auto) 5.7 % (0.0-8.0); Neut # (Auto) 4.1 th/mm3 (1.8-7.7); Neut % (Auto) 63.1 % (16.0-70.0); Platelet Count 153 th/mm3 (150-450); Red Blood Count 4.29 mil/mm3 (4.50-5.90); Red Cell Distribution Width 14.6 % (11.6-17.2); White Blood Count 6.4 th/mm3 (4.0-11.0)
[2018-10-08 07:35] LABS: Anion Gap 10 meq/L (5-15); Blood Urea Nitrogen 7 mg/dL (7-18); Calcium 8.3 mg/dL (8.5-10.1); Carbon Dioxide 25.5 meq/L (21.0-32.0); Chloride 110 meq/L (98-107); Glomerular Filtration Rate Greater Than 89 mL/min (>89); Glucose,Random 148 mg/dL (74-106); Potassium 3.6 meq/L (3.5-5.1); Sodium 145 meq/L (136-145)
[2018-10-08] MEDS: Heparin - SQ 10,000 UNITS/ML Vial SQ SCH (08:51)
[2018-10-08] MEDS: Famotidine PF Inj 20 MG/2 ML Vial IV.PUSH SCH (08:51)
--- NOTE | 2018-10-08 11:44 | P.PNCS ---
Subjective Colorectal Surgery Post Op Day #: 1 Interval history: s/p ventral hernia repair, ileostomy closure Objective Result Diagrams: 10/08/18 06:08 10/08/18 06:28 Objective Remarks: ABdomen soft, nondistended, tender Dressings c/d/i Assessment and Plan - Plan Home Followup 2 weeks
[2018-10-08 12:27] VITALS: BP 139/78; PULSE 80; RESP 18; TEMP 98.1; O2SAT 95
== END 2018-10-08 14:14 | disposition home or self-care (01) | DRG 331 ==
LOC: HSDI 11:08 → N07 18:26
PROVIDERS: ADMIT Colon & Rectal Surgery; ATTEND Colon & Rectal Surgery
CPT/HCPCS: 80048; 82948; 82962; 85025; 86850; 86900; 86901; C1765; C1781; J0131; J0690; J1200; J1644; J2250; J2270; J3010; J3480; J7042; J7120